=== PATIENT | female | born 1930 | race Caucasian/White ===

== ENCOUNTER 2018-11-20 16:31 | Emergency (ER) | payer MEDICARE, BC ==
[~2018-11-20] VITALS: Ht 152.4 cm; Wt 55.3 kg
[~2018-11-20 16:31] MED LIST: ALPRAZOLAM 0.5 MG; AMLO10TA4 PO; ASPI81TA31 PO; ATOR10TA PO; ESCI5TAB PO; LEVO25TA2 PO
[2018-11-20] MEDS ORDERED: IPRATROPIUM BROMIDE 0.5 MG/2.5 ML NEBU NEB ONE (17:15)
[2018-11-20] MEDS ORDERED: ALBUTEROL SULFATE 2.5 MG/3 ML NEBU NEB ONE (17:15)
[2018-11-20] MEDS ORDERED: ALBUTEROL SULFATE 2.5 MG/ 0.5 ML NEBU ONE (17:22)
[2018-11-20] MEDS ORDERED: IPRATROPIUM BROMIDE 0.5 MG/2.5 ML NEBU ONE (17:22)
--- NOTE | 2018-11-20 17:53 | NUR ---
Patient discharged to home in stable conditon. Written and verbal after care instructions given. Patient verbalizes understanding of instructions.pt says feels better, breathingnormally. pt accompanied by daughter
[2018-11-20 17:57] VITALS: BP 119/77
== END 2018-11-20 18:00 | disposition home or self-care (01) ==
LOC: ER 16:31
DX: J44.1 Chronic obstructive pulmonary disease with (acute) exacerbation (principal); I10 Essential (primary) hypertension; Z88.5 Allergy status to narcotic agent; Z79.82 Long term (current) use of aspirin; Z79.899 Other long term (current) drug therapy
CPT/HCPCS: 71045; A4663; J3590

== ENCOUNTER 2018-11-23 12:34 | Inpatient (IN) | payer MEDICARE, BC ==
[~2018-11-23] VITALS: Ht 152.4 cm; Wt 59.4 kg
--- NOTE | 2018-11-23 12:56 | NUR ---
PATIENT HERE WITH DAUGHTER FOR COUGHING..
[2018-11-23] MEDS ORDERED: IPRATROPIUM BROMIDE 0.5 MG/2.5 ML NEBU NEB ONE (13:00)
[2018-11-23] MEDS ORDERED: methylPREDNISolone SOD SUCC 125 MG/2 ML VIAL IV ONE (13:00)
[2018-11-23] MEDS ORDERED: ALBUTEROL SULFATE 2.5 MG/3 ML NEBU NEB ONE (13:00)
[2018-11-23] MEDS ORDERED: ALBUTEROL SULFATE 2.5 MG/3 ML NEBU ONE (13:02)
[2018-11-23] MEDS ORDERED: IPRATROPIUM BROMIDE 0.5 MG/2.5 ML NEBU ONE (13:03)
[2018-11-23] MEDS ORDERED: methylPREDNISolone SOD SUCC 125 MG/2 ML VIAL ONE (13:06)
[2018-11-23 13:13] LABS: BASOPHILS % (AUTO) 0.8 % (0.0-2.0); EOSINOPHILS # (AUTO) 0.2 K/uL (0.0-0.7); EOSINOPHILS % (AUTO) 2.9 % (0.0-7.0); HEMATOCRIT 34.9 % (31.2-41.9); LYMPHOCYTES # (AUTO) 1.3 K/uL (20.0-40.0); LYMPHOCYTES % (AUTO) 22.6 % (20.5-51.5); MEAN CORPUSCULAR HEMOGLOBIN 25.3 uug (24.7-32.8); MEAN CORPUSCULAR HGB CONC 32 g/dL (32.3-35.6); MEAN CORPUSCULAR VOLUME 80.3 fL (75.5-95.3); MONOCYTES # (AUTO) 0.7 K/uL (2.0-10.0); MONOCYTES % (AUTO) 11.4 % (0.0-11.0); NEUTROPHILS # (AUTO) 3.6 K/uL (1.8-8.9); NEUTROPHILS % (AUTO) 62.3 % (38.5-71.5); PLATELET COUNT (AUTO) 233 K/uL (179-408); RED BLOOD CELL COUNT(AUTO) 4.34 MIL/uL (3.63-4.92); WHITE BLOOD COUNT (AUTO) 5.8 K/uL (3.8-11.8)
[2018-11-23 13:19] LABS: CARBON DIOXIDE 29 mmol/L (21-32); CHLORIDE 102 mmol/L (98-107); CREATININE 0.9 mg/dL (0.6-1.3); GLUCOSE 90 mg/dL (74-106); POTASSIUM 4.6 mmol/L (3.5-5.1); UREA NITROGEN, BLOOD 11 mg/dL (7-18)
[2018-11-23 13:25] LABS: ALANINE AMINOTRANSFERASE 19 U/L (14-59); ALKALINE PHOSPHATASE 81 U/L (50-136); ASPARTATE AMINOTRANSFERASE 17 U/L (15-37); BILIRUBIN,DIRECT 0.1 mg/dL (0.0-0.2); BILIRUBIN,TOTAL 0.3 mg/dL (0.2-1.0); TOTAL PROTEIN, SERUM 7.4 g/dL (6.4-8.2)
[2018-11-23] MEDS ORDERED: DICY10CA13 PO (13:47)
[2018-11-23] MEDS ORDERED: MIRT15TA PO (13:47)
[2018-11-23] MEDS ORDERED: BUPR-96 PO (13:47)
[2018-11-23] MEDS ORDERED: DONE10TA11 PO (13:47)
--- NOTE | 2018-11-23 14:09 | NUR ---
PATIENT AND DAUGHTER AWARE OF PENDING ADMISSION TO HOSPITAL. PATIENT IS AWAKE AND ALERT WITH NO NEW COMPLAINTS.
--- NOTE | 2018-11-23 15:15 | NUR ---
Received this admission from ER per robert, 88 yo female, with the chief complaint of cough, diagnosis of COPD. Transferred to bed comfortably. Routine admission care rendered. Awake, alert, oriented x 4, able to move all extremities on purpose. O2 at 2L/NC. Dr. Barrett informed of admission.
[2018-11-23 15:32] VITALS: BP 113/56
[2018-11-23] MEDS ORDERED: ACETAMINOPHEN 325 MG TABLET PO PRN (16:45)
[2018-11-23] MEDS ORDERED: LEVOFLOXACIN 500 MG/D5W 500 MG in PREMIXED 1 EACH IV SCH (16:45)
[2018-11-23] MEDS ORDERED: IPRATROPIUM BROMIDE 0.5 MG/2.5 ML NEBU NEB PRN (16:45)
[2018-11-23] MEDS ORDERED: ONDANSETRON 4 MG/2 ML VIAL IV PRN (16:45)
[2018-11-23] MEDS ORDERED: MAGNESIUM HYDROXIDE 30 ML LIQUID UDC PO PRN (16:45)
[2018-11-23] MEDS: FLUTICASONE/VILANTEROL 1 EACH BLST.W.DEV INH SCH (18:31)
[2018-11-23 19:00] VITALS: BP 114/53
[2018-11-23] MEDS: ALBUTEROL SULFATE 2.5 MG/3 ML NEBU NEB PRN (19:20)
[2018-11-23] MEDS: IPRATROPIUM BROMIDE 0.5 MG/2.5 ML NEBU NEB PRN (19:20)
[2018-11-23] MEDS ORDERED: LEVOFLOXACIN 750MG/D5W 750 MG in PREMIXED 1 EACH IV SCH (19:30)
[2018-11-23] MEDS: DICYCLOMINE HCL 10 MG CAPSULE PO SCH (21:08)
[2018-11-23] MEDS: DOCUSATE SODIUM 100 MG CAPSULE PO SCH (21:08)
[2018-11-23] MEDS: ATORVASTATIN 10 MG TABLET PO SCH (21:08)
[2018-11-23] MEDS: MIRTAZAPINE 15 MG TABLET PO SCH (21:09)
[2018-11-23] MEDS: methylPREDNISolone SOD SUCC 40 MG/ML VIAL IV SCH (21:11)
[2018-11-23] MEDS: BENZOCAINE/MENTH/CETYLPYRD LOZENGE MM PRN (21:11)
[2018-11-23] MEDS ORDERED: GUAIFENESIN/DEXTROMETHORPHAN 5 ML UDC PO PRN (21:45)
[2018-11-24] VITALS: BP 125/57
[2018-11-24 05:00] VITALS: BP 105/50
[2018-11-24] MEDS: methylPREDNISolone SOD SUCC 40 MG/ML VIAL IV SCH ×3 (05:48→21:13)
[2018-11-24] MEDS: BENZOCAINE/MENTH/CETYLPYRD LOZENGE MM PRN (05:53)
[2018-11-24] MEDS: PANTOPRAZOLE SODIUM 40 MG TABLET.DR PO SCH (06:07)
[2018-11-24] MEDS: LEVOTHYROXINE SODIUM 75 MCG TABLET PO SCH (06:07)
[2018-11-24 06:11] LABS: BASOPHILS % (AUTO) 0.1 % (0.0-2.0); HEMATOCRIT 35.1 % (31.2-41.9); HEMOGLOBIN 11.3 g/dL (10.9-14.3); LYMPHOCYTES % (AUTO) 17.9 % (20.5-51.5); MEAN CORPUSCULAR HEMOGLOBIN 25.8 uug (24.7-32.8); MEAN CORPUSCULAR HGB CONC 32 g/dL (32.3-35.6); MEAN CORPUSCULAR VOLUME 79.9 fL (75.5-95.3); MONOCYTES # (AUTO) 0.2 K/uL (2.0-10.0); MONOCYTES % (AUTO) 2.9 % (0.0-11.0); NEUTROPHILS # (AUTO) 4.5 K/uL (1.8-8.9); NEUTROPHILS % (AUTO) 79.1 % (38.5-71.5); PLATELET COUNT (AUTO) 250 K/uL (179-408); RED BLOOD CELL COUNT(AUTO) 4.39 MIL/uL (3.63-4.92); WHITE BLOOD COUNT (AUTO) 5.7 K/uL (3.8-11.8)
[2018-11-24 06:20] LABS: CARBON DIOXIDE 28 mmol/L (21-32); CHLORIDE 104 mmol/L (98-107); CHOLESTEROL 117 mg/dL (<200); GLUCOSE 203 mg/dL (74-106); HDL CHOLESTEROL 64 mg/dL (40-60); MAGNESIUM 2.3 mg/dL (1.8-2.4); PHOSPHOROUS 3.2 mg/dL (2.5-4.9); POTASSIUM 4.3 mmol/L (3.5-5.1); TRIGLYCERIDES 24 MG/DL (30-150); UREA NITROGEN, BLOOD 18 mg/dL (7-18)
[2018-11-24 06:25] LABS: IRON, SERUM 48 ug/dL (50-175)
[2018-11-24 06:27] LABS: THYROID STIMULATING HORMONE 1.044 mIU/mL (0.358-3.740)
[2018-11-24 07:37] LABS: LYMPHOCYTES % (MANUAL) 16 % (20-40); MONOCYTES % (MANUAL) 4 % (2-10); NEUTROPHILS % (MANUAL) 80 % (42-75)
--- NOTE | 2018-11-24 07:50 | NUR ---
received a 88 y/o female patient as a case of COPD, alert OX3, breathing via NC 2lpm. pt has a LT F.ARM IV HEP-LOCKED,G20.Shes ambulatory, and has bathroom privileges.
[2018-11-24] MEDS ORDERED: LEVOTHYROXINE SODIUM 25 MCG TABLET PO SCH (09:00)
[2018-11-24] MEDS ORDERED: AMLODIPINE 10 MG TABLET PO SCH (09:00)
[2018-11-24] MEDS: BACITRACIN/POLYMYXIN B OINT 15 GM TUBE TOP SCH (09:00)
--- NOTE | 2018-11-24 09:00 | NUR ---
Report received from MERT Moore.Pt remains awake,alert,forgetful.Denies pain,discomfort.Spoke with pt daughter,updated on pt condition.
[2018-11-24] MEDS: FLUTICASONE/VILANTEROL 1 EACH BLST.W.DEV INH SCH (09:31)
[2018-11-24] MEDS: AMLODIPINE 5 MG TABLET PO SCH (09:32)
[2018-11-24] MEDS: buPROPion XL 150 MG TAB.SR.24H PO SCH (09:32)
[2018-11-24] MEDS: DONEPEZIL 10 MG TABLET PO SCH (09:33)
[2018-11-24 11:34] VITALS: BP 114/51
--- NOTE | 2018-11-24 13:30 | NUR ---
Report given to MERT Broussard.Pt remains awake,alert.Call light within reach.
[2018-11-24 16:04] VITALS: BP 104/54
[2018-11-24] MEDS: IPRATROPIUM BROMIDE 0.5 MG/2.5 ML NEBU NEB PRN (19:37)
[2018-11-24] MEDS: ALBUTEROL SULFATE 2.5 MG/3 ML NEBU NEB PRN (19:37)
[2018-11-24] MEDS: MIRTAZAPINE 15 MG TABLET PO SCH (20:03)
[2018-11-24] MEDS: DOCUSATE SODIUM 100 MG CAPSULE PO SCH (20:04)
[2018-11-24] MEDS: DICYCLOMINE HCL 10 MG CAPSULE PO SCH (20:04)
[2018-11-24] MEDS: ATORVASTATIN 10 MG TABLET PO SCH (20:04)
[2018-11-24 20:38] VITALS: BP 106/50
[2018-11-25 00:22] VITALS: BP 106/47
[2018-11-25] MEDS: BENZOCAINE/MENTH/CETYLPYRD LOZENGE MM PRN (01:55)
[2018-11-25 04:58] VITALS: BP 101/53
--- NOTE | 2018-11-25 05:09 | NUR ---
PT SLEPT WELL THROUGH THE NIGHT AND WAS EASILY AWOKEN, PT DENIED HAVING ANY PAIN, PT HAD ONE EPISODE OF SOB AT START OF SHIFT, BREATHING TREATMENT WAS GIVEN AND WAS EFFECTIVE. PT IN THE MIDDLE OF THE NIGHT WOKE UP WITH A VERY BAD COUGH, COUGH MEDICATION WAS GIVEN WITH COUGH LOZENGE AND WAS EFFECTIVE. PT WAS ABLE TO SLEEP FOR THE REST OF THE NIGHT. ALL NEEDS MET, SAFETY MEASURES ARE IN PLACE, CALL LIGHT WITHIN REACH, BED ALARM IS ON.
[2018-11-25] MEDS: PANTOPRAZOLE SODIUM 40 MG TABLET.DR PO SCH (06:22)
[2018-11-25] MEDS: LEVOTHYROXINE SODIUM 75 MCG TABLET PO SCH (06:22)
[2018-11-25] MEDS: methylPREDNISolone SOD SUCC 40 MG/ML VIAL IV SCH ×3 (06:22→21:35)
--- NOTE | 2018-11-25 07:20 | NUR ---
RECEIVED PATIENT IN THE BATHROOM AT THIS TIME STATED VOIDING ENCOURAGED HER TO LET THE NURSE KNOW WHEN SHE NEEDS HELP AND SHE EXPRESSED UNDERSTANDING ON ROOM AIR WITH NO SHORTNESS OF BREATH CALL LIGHTS AND PERSONAL BELONGINGS ARE PLACED WITHIN EASY REACH AND WILL CONTINUE TO OBSERVE.
[2018-11-25] MEDS: DONEPEZIL 10 MG TABLET PO SCH (08:27)
[2018-11-25] MEDS: buPROPion XL 150 MG TAB.SR.24H PO SCH (08:27)
[2018-11-25] MEDS: FLUTICASONE/VILANTEROL 1 EACH BLST.W.DEV INH SCH (08:28)
[2018-11-25] MEDS: AMLODIPINE 5 MG TABLET PO SCH (08:28)
[2018-11-25] MEDS: BACITRACIN/POLYMYXIN B OINT 15 GM TUBE TOP SCH (08:30)
--- NOTE | 2018-11-25 11:15 | NUR ---
NEW ORDER TO DISCONTINUE TELEMETRY BY DR BARNES RECEIVED AND NOTED
[2018-11-25 11:37] VITALS: BP 111/67
--- NOTE | 2018-11-25 13:29 | NUR ---
DR BARNES HERE TO SEE PATIENT AND STATED THAT IT WAS OKAY FOR PATIENT TO GET HER PNEUMONIA VACCINES TODAY AND THAT SHE SHOULD GET THE FLU VACCINES LATER FROM HER PRIMARY DOCTOR OR [facility] SHE IS FEELING BETTER PATIENT AWARE.
[2018-11-25] MEDS ORDERED: PNEUMOCOCCAL 23-VAL P-SAC VAC 0.5 ML VIAL IM ONE (13:30)
[2018-11-25 15:49] VITALS: BP 134/60
--- NOTE | 2018-11-25 15:50 | NUR ---
PNEUMONIA VACCINE GIVEN TO THE PATIENT ORDERED ON HER LEFT DELTOID NO BLEEDING MADE COMFORTABLE WILL CONTINUE TO OBSERVE.
[2018-11-25] MEDS ORDERED: LEVOFLOXACIN 750 MG TABLET PO SCH (16:00)
--- NOTE | 2018-11-25 18:22 | NUR ---
RESTING DAUGHTER AT THE BEDSIDE VISITING AT THIS TIME NO DISTRESS NOTED.
--- NOTE | 2018-11-25 19:46 | NUR ---
Received patient awake sitting up in bed not in any form of distress. Patient on room air, tolerated. With IV access at left forearm to saline lock, intact. No complaints at the moment. Will monitor for any recurrence of shortness of breath. Bed in low position, side rails up x 2, call light within reach.
[2018-11-25 20:14] VITALS: BP 128/56
[2018-11-25] MEDS: MIRTAZAPINE 15 MG TABLET PO SCH (20:55)
[2018-11-25] MEDS: DICYCLOMINE HCL 10 MG CAPSULE PO SCH (20:55)
[2018-11-25] MEDS: ATORVASTATIN 10 MG TABLET PO SCH (20:55)
[2018-11-25] MEDS: DOCUSATE SODIUM 100 MG CAPSULE PO SCH (20:55)
--- NOTE | 2018-11-25 22:00 | NUR ---
Patient irritable and requesting for sleeping medication, contacted Dr. De La Garza if any medication can be ordered regarding patient's request. Per Dr. De La Garza patient can have Xanax 1mg QHS PRN - noted.
[2018-11-25] MEDS ORDERED: ALPRAZOLAM 0.5 MG TABLET PO PRN (22:15)
[2018-11-25] MEDS: ALBUTEROL SULFATE 2.5 MG/3 ML NEBU NEB PRN (23:01)
[2018-11-25] MEDS: IPRATROPIUM BROMIDE 0.5 MG/2.5 ML NEBU NEB PRN (23:01)
[2018-11-26 05:23] VITALS: BP 137/72
[2018-11-26] MEDS: methylPREDNISolone SOD SUCC 40 MG/ML VIAL IV SCH (05:58)
[2018-11-26] MEDS: PANTOPRAZOLE SODIUM 40 MG TABLET.DR PO SCH (06:04)
[2018-11-26] MEDS: LEVOTHYROXINE SODIUM 75 MCG TABLET PO SCH (06:04)
--- NOTE | 2018-11-26 06:15 | NUR ---
Patient slept well, no respiratory distress noted. Patient is awake and alert x 3 but a little bit forgetful. Still with IV access on the left forearm, patent and intact. Noted for discharge planning this morning.
[2018-11-26] MEDS: buPROPion XL 150 MG TAB.SR.24H PO SCH (08:23)
[2018-11-26] MEDS: DONEPEZIL 10 MG TABLET PO SCH (08:23)
[2018-11-26] MEDS: FLUTICASONE/VILANTEROL 1 EACH BLST.W.DEV INH SCH (08:24)
[2018-11-26] MEDS: BACITRACIN/POLYMYXIN B OINT 15 GM TUBE TOP SCH (08:24)
[2018-11-26] MEDS: AMLODIPINE 5 MG TABLET PO SCH (08:25)
--- NOTE | 2018-11-26 09:00 | NUR ---
AWAKE ALERT FORGETFUL DENIES PAIN OR DISCOMFORTS AT THIS TIME ABLE TO AMBULATE BUT WEAK NEEDED SOME ASSIST CALL LIGHTS AND PERSONAL BELONGINGS ARE WITHIN EASY REACH AT THIS TIME WILL CONTINUE TO OBSERVE.
[2018-11-26 12:00] VITALS: BP 140/59
[2018-11-26] MEDS ORDERED: GUAIFENESIN LA 600 MG TABLET.SA PO SCH (12:15)
--- NOTE | 2018-11-26 14:00 | NUR ---
PATIENT HAS A DISCHARGE ORDER AND HAS BEEN APPROAVED BY JOSE G GOLDBERG CALLED THE AMBULANCE AND WILL BE PICKED UP AT [phone]
[2018-11-26] MEDS ORDERED: IPRA0.2S6 NEB (14:26)
[2018-11-26] MEDS ORDERED: FLUT1BLS INH (14:26)
[2018-11-26] MEDS ORDERED: MAGN400O6 PO (14:26)
[2018-11-26] MEDS ORDERED: ACET325T53 PO (14:26)
[2018-11-26] MEDS ORDERED: GUAI5SYR PO (14:26)
[2018-11-26] MEDS ORDERED: DOCU100C36 PO (14:26)
[2018-11-26] MEDS ORDERED: GUAI600T53 PO (14:26)
[2018-11-26] MEDS ORDERED: BACI15OI3 TOP (14:26)
[2018-11-26] MEDS ORDERED: MULT1TAB73 PO (14:26)
[2018-11-26] MEDS ORDERED: Benzocaine/Menth/Cetylpyrd Cl MM (14:26)
[2018-11-26] MEDS ORDERED: METH4TAB3 PO (14:26)
[2018-11-26] MEDS ORDERED: ALPR0.5T PO (14:26)
[2018-11-26] MEDS ORDERED: LEVO750T21 PO (14:26)
[2018-11-26] MEDS ORDERED: ALBU2.5V7 NEB (14:26)
[2018-11-26] MEDS ORDERED: PANT40TA2 PO (14:26)
[2018-11-26 15:35] VITALS: BP 103/65
--- NOTE | 2018-11-26 17:22 | NUR ---
CALLED JOSE G GOLDBERG AND REPORT GIVEN TO ANGUS PAINTING FOR CONTINUING CARE ALSO REPORT GIVEN TO THE AMBULANCE TECH HERE NOW D/C INSTRUCTIONS GIVEN TO PATIENT AND SHE EXPRESSED UNDERSTANDING.DISCHARGED IN SATISFACTORY CONDITION WITH ALL OF HIS PERSONAL BELONGINGS.
--- NOTE | 2018-11-26 17:45 | NUR ---
PATIENT DISCHARGED FROM THE HOSPITAL BY RICARDO WITH ALL HER PERSONAL BELONGINGS IN SATISFACTORY CONDITION.
[2018-11-26] MEDS ORDERED: methylPREDNISolone SOD SUCC 40 MG/ML VIAL IV SCH (21:00)
== END 2018-11-26 17:45 | DRG 190 ==
LOC: ER 12:34 → TELE 14:48 → MED 11-25 11:15
PROVIDERS: ADMIT Internal Medicine; ATTEND Internal Medicine
DX: J44.0 Chronic obstructive pulmonary disease with (acute) lower respiratory infection (principal); I50.33 Acute on chronic diastolic (congestive) heart failure; J96.01 Acute respiratory failure with hypoxia; J84.9 Interstitial pulmonary disease, unspecified; D68.59 Other primary thrombophilia; J20.9 Acute bronchitis, unspecified; J44.1 Chronic obstructive pulmonary disease with (acute) exacerbation; Z79.899 Other long term (current) drug therapy; Z79.82 Long term (current) use of aspirin; Z87.891 Personal history of nicotine dependence; A49.9 Bacterial infection, unspecified; I11.0 Hypertensive heart disease with heart failure; Z98.42 Cataract extraction status, left eye; Z98.41 Cataract extraction status, right eye; M19.90 Unspecified osteoarthritis, unspecified site; E78.5 Hyperlipidemia, unspecified; Z87.19 Personal history of other diseases of the digestive system; Z79.890 Hormone replacement therapy; I35.1 Nonrheumatic aortic (valve) insufficiency; F32.9 Major depressive disorder, single episode, unspecified; G47.00 Insomnia, unspecified
CPT/HCPCS: 36415; 70030-TC; 71045; 83550; 83605; 83735; 84100; 84443; 85025; 87040; 90732; 93005; 93307; 94640; 94664; 97116; 97530; A4663; G0378; J1956; J2920; J2930; J3590

== ENCOUNTER 2020-04-18 11:59 | Inpatient (IN) | payer MEDICARE, BC ==
[~2020-04-18] VITALS: Ht 160 cm; Wt 58.1 kg
[~2020-04-18 11:59] MED LIST changes: +ACET325T53 PO; +ALBU2.5V7 NEB; +ALPR0.5T PO; -ALPRAZOLAM 0.5 MG; -ASPI81TA31 PO; +BUPR-96 PO; +Benzocaine/Menth/Cetylpyrd Cl MM; +DICY10CA13 PO; +DOCU100C36 PO; +DONE10TA11 PO; -ESCI5TAB PO; +FLUT1BLS INH; +GUAI5SYR PO; +GUAI600T53 PO; +IPRA0.2S6 NEB; +LEVO750T21 PO; +MAGN400O6 PO; +METH4TAB3 PO; +MIRT15TA PO; +MULT-594 PO; +PANT40TA2 PO; +[UNRECOGNIZED DRUG - CODE] TOP
--- NOTE | 2020-04-18 12:10 | NUR ---
Pt is unable to recall her home medications. Pt states her daughter will come in later with the information.
--- NOTE | 2020-04-18 13:06 | NUR ---
Patient is resting comfortably on gurney with eyes closed, NAD, for results and disposition
[2020-04-18] MEDS ORDERED: ONDANSETRON 4 MG/2 ML VIAL ONE (13:29)
[2020-04-18] MEDS ORDERED: HYDROMORPHONE 1 MG/1 ML DISP.SYRIN ONE (13:29)
[2020-04-18] MEDS ORDERED: ONDANSETRON 4 MG/2 ML VIAL IV ONE (13:30)
[2020-04-18] MEDS ORDERED: HYDROMORPHONE 1 MG/1 ML DISP.SYRIN IV ONE (13:30)
[2020-04-18] MEDS ORDERED: IV NORMAL SALINE 1000 ML BAG IV ONE (13:30)
[2020-04-18 13:43] LABS: BASOPHILS # (AUTO) 0.1 K/uL (0.0-8.0); EOSINOPHILS # (AUTO) 0.1 K/uL (0.0-0.7); EOSINOPHILS % (AUTO) 1.7 % (0.0-7.0); HEMATOCRIT 37.8 % (31.2-41.9); HEMOGLOBIN 12.1 g/dL (10.9-14.3); LYMPHOCYTES # (AUTO) 1.6 K/uL (20.0-40.0); LYMPHOCYTES % (AUTO) 22.5 % (20.5-51.5); MEAN CORPUSCULAR HEMOGLOBIN 26.5 uug (24.7-32.8); MEAN CORPUSCULAR HGB CONC 32 g/dL (32.3-35.6); MEAN CORPUSCULAR VOLUME 82.9 fL (75.5-95.3); MONOCYTES # (AUTO) 0.5 K/uL (2.0-10.0); MONOCYTES % (AUTO) 7.7 % (0.0-11.0); NEUTROPHILS # (AUTO) 4.7 K/uL (1.8-8.9); NEUTROPHILS % (AUTO) 67.1 % (38.5-71.5); PLATELET COUNT (AUTO) 276 K/uL (179-408); RED BLOOD CELL COUNT(AUTO) 4.56 MIL/uL (3.63-4.92); WHITE BLOOD COUNT (AUTO) 7.1 K/uL (3.8-11.8)
[2020-04-18 13:50] LABS: CREATININE 0.8 mg/dL (0.6-1.3); POTASSIUM 4.2 mmol/L (3.5-5.1)
[2020-04-18 13:56] LABS: BILIRUBIN,DIRECT 0.1 mg/dL (0.0-0.2); BILIRUBIN,TOTAL 0.5 mg/dL (0.2-1.0); TOTAL PROTEIN, SERUM 7.7 g/dL (6.4-8.2)
--- NOTE | 2020-04-18 14:04 | NUR ---
MERCEDEZ [email or web address]
--- NOTE | 2020-04-18 14:10 | NUR ---
Patient is waiting for admission, pending admitting papers from ER registration staff Colby@this time, patient is calm, comfortable@this moment
[2020-04-18] MEDS ORDERED: ALBUTEROL SULFATE 2.5 MG/3 ML NEBU NEB PRN (14:45)
[2020-04-18] MEDS ORDERED: ACETAMINOPHEN 325 MG TABLET PO PRN (14:45)
[2020-04-18] MEDS ORDERED: MAGNESIUM HYDROXIDE 30 ML LIQUID UDC PO PRN (14:45)
[2020-04-18] MEDS ORDERED: ALPRAZOLAM 0.5 MG TABLET PO PRN (14:45)
[2020-04-18] MEDS ORDERED: IPRATROPIUM BROMIDE 0.5 MG/2.5 ML NEBU NEB PRN (14:45)
[2020-04-18] MEDS ORDERED: Z GUARD REMEDY PASTE 57 GM TUBE TOP PRN (14:45)
[2020-04-18] MEDS ORDERED: ZOLPIDEM 5 MG TABLET PO PRN (14:45)
--- NOTE | 2020-04-18 14:45 | NUR ---
Pt brought up to room via stretcher. AOx4 and complaining of 10/10 lower back and hip pain. On RA with no SOB or distress noted at this time. IV on left AC 22g flushed and intact. Can't turn patient for assessment as much due to severe pain. Will give medication and assess again at another time. Bed locked in lowest position with siderails 2x up. Call light within reach.
[2020-04-18 15:00] VITALS: BP 180/66
[2020-04-18] MEDS: IV 1/2NS 1000 ML 1,000 ML IV PRN (15:38)
[2020-04-18] MEDS: HYDROMORPHONE 1 MG/1 ML DISP.SYRIN IV PRN (15:54)
[2020-04-18 16:00] VITALS: BP 158/65
[2020-04-18] MEDS: ONDANSETRON 4 MG/2 ML VIAL IV PRN (18:42)
--- NOTE | 2020-04-18 18:47 | NUR ---
Pt had 2 episodes of emesis, one post dinner and stated she feel nauseated. Zofran PRN given as ordered
--- NOTE | 2020-04-18 19:58 | NUR ---
Patient received into care, sitting up in bed, watching television. Patient was noted to be vomiting into Styrofoam cup with emesis bag nearby. This nurse provided patient with emesis bag and threw away cup filled with vomitus. Patient has left AC IV cath running 1/2 NS at 50. Patient is alert/oriented x3 and has no complaints of pain at this time. All safety, fall, and allergy precautions are in place. Call light and personal items are within reach at all times. Will continue to monitor and assess.
[2020-04-18] MEDS: ENOXAPARIN SODIUM 40 MG/0.4 ML DISP.SYRIN SQ SCH (20:27)
[2020-04-18 20:30] VITALS: BP 134/57
[2020-04-18] MEDS: DICYCLOMINE HCL 10 MG CAPSULE PO SCH (20:36)
[2020-04-18] MEDS: ATORVASTATIN 10 MG TABLET PO SCH (20:36)
[2020-04-18] MEDS: DOCUSATE SODIUM 100 MG CAPSULE PO SCH (20:36)
[2020-04-18 21:31] LABS: *BILIRUBIN,URIN NEGATIVE (NEGATIVE); *CLARITY,URINE CLEAR (CLEAR); *COLOR,URINE YELLOW (YELLOW); *KETONES,URINE NEGATIVE (NEGATIVE); LEUKOCYTE ESTERASE ,URINE TRACE (NEGATIVE); NITRITE, URINE NEGATIVE (NEGATIVE); UGLUCOSE NEGATIVE (NEGATIVE)
[2020-04-18 21:34] LABS: *BLOOD, URINE TRACE (NEGATIVE)
[2020-04-18 21:43] LABS: BACTERIA,URINE FEW /HPF (NONE SEEN); RBC,URINE 0-3 /HPF (0-3); SQUAMOUS EPITHELIAL CELL,UR FEW /HPF (NONE SEEN); WBC,URINE 0-3 /HPF (0-3)
[2020-04-19 05:20] VITALS: BP 128/66
--- NOTE | 2020-04-19 06:00 | NUR ---
Patient slept throughout night after receiving prescribed Ambien with no complaints of pain or discomfort this shift. As ordered, urine was collected for UA/culture/sensitivity and delivered to lab. All prescribed medications provided as ordered and tolerated well, with no adverse side effects verbalized by patient or noted/observed by this nurse. IV cath in left AC is patent and intact running 1/2 NS at 50mL/hr. All fall, allergy, and safety precautions remain in place. Call light and personal items remain within reach.
[2020-04-19 06:37] LABS: BASOPHILS # (AUTO) 0.1 K/uL (0.0-8.0); BASOPHILS % (AUTO) 1.4 % (0.0-2.0); EOSINOPHILS # (AUTO) 0.2 K/uL (0.0-0.7); EOSINOPHILS % (AUTO) 3.3 % (0.0-7.0); HEMATOCRIT 35.7 % (31.2-41.9); HEMOGLOBIN 11.5 g/dL (10.9-14.3); LYMPHOCYTES # (AUTO) 1.5 K/uL (20.0-40.0); LYMPHOCYTES % (AUTO) 26.9 % (20.5-51.5); MEAN CORPUSCULAR HEMOGLOBIN 26.7 uug (24.7-32.8); MEAN CORPUSCULAR HGB CONC 32 g/dL (32.3-35.6); MEAN CORPUSCULAR VOLUME 82.9 fL (75.5-95.3); MONOCYTES # (AUTO) 0.4 K/uL (2.0-10.0); MONOCYTES % (AUTO) 7.6 % (0.0-11.0); NEUTROPHILS # (AUTO) 3.4 K/uL (1.8-8.9); NEUTROPHILS % (AUTO) 60.8 % (38.5-71.5); PLATELET COUNT (AUTO) 260 K/uL (179-408); RED BLOOD CELL COUNT(AUTO) 4.31 MIL/uL (3.63-4.92); WHITE BLOOD COUNT (AUTO) 5.7 K/uL (3.8-11.8)
[2020-04-19 06:47] LABS: BILIRUBIN,TOTAL 0.7 mg/dL (0.2-1.0); CREATININE 0.9 mg/dL (0.6-1.3); MAGNESIUM 2.2 mg/dL (1.8-2.4); PHOSPHOROUS 3.2 mg/dL (2.5-4.9); POTASSIUM 3.8 mmol/L (3.5-5.1); TOTAL PROTEIN, SERUM 6.9 g/dL (6.4-8.2)
[2020-04-19 06:54] LABS: THYROID STIMULATING HORMONE 2.63 mIU/mL (0.358-3.740)
[2020-04-19] MEDS ORDERED: LEVOTHYROXINE SODIUM 25 MCG TABLET PO SCH (07:00)
[2020-04-19] MEDS ORDERED: BISACODYL 5 MG TABLET.DR PO PRN (07:30)
[2020-04-19] MEDS ORDERED: AMLODIPINE 10 MG TABLET PO SCH (09:00)
[2020-04-19] MEDS ORDERED: Medication Not On Formulary EA (Multivitamins (Multivitamin) 1 EACH) PO SCH (09:00)
[2020-04-19] MEDS: DONEPEZIL 10 MG TABLET PO SCH (09:04)
[2020-04-19] MEDS: buPROPion XL 150 MG TAB.SR.24H PO SCH (09:04)
[2020-04-19] MEDS: MULTIVITAMINS,THERAPEUTIC TABLET PO SCH (09:04)
[2020-04-19] MEDS: CEFTRIAXONE 1 G in IV DEXTROSE 5% 50 ML IV SCH (09:04)
--- NOTE | 2020-04-19 09:10 | NUR ---
patient noted resting in bed, call light in reach, no signs of distress, Dilaudid given for back pain, one episode of vomiting noted, call light in reach, bed locked and in lowest position, all needs met
[2020-04-19] MEDS: HYDROMORPHONE 1 MG/1 ML DISP.SYRIN IV PRN ×2 (09:27→16:46)
[2020-04-19] MEDS: FLUTICASONE/VILANTEROL 1 EACH BLST.W.DEV INH SCH (09:53)
[2020-04-19 12:00] VITALS: BP 115/47
[2020-04-19] MEDS: ONDANSETRON 4 MG/2 ML VIAL IV PRN (14:48)
[2020-04-19 16:36] VITALS: BP 142/59
[2020-04-19] MEDS: IV 1/2NS 1000 ML 1,000 ML IV PRN (19:48)
[2020-04-19 20:44] VITALS: BP 128/63
[2020-04-19] MEDS: DICYCLOMINE HCL 10 MG CAPSULE PO SCH (20:57)
[2020-04-19] MEDS: ATORVASTATIN 10 MG TABLET PO SCH (20:57)
[2020-04-19] MEDS: DOCUSATE SODIUM 100 MG CAPSULE PO SCH (20:57)
[2020-04-19] MEDS: ENOXAPARIN SODIUM 40 MG/0.4 ML DISP.SYRIN SQ SCH (21:04)
[2020-04-20 05:34] VITALS: BP 140/62
[2020-04-20] MEDS: LEVOTHYROXINE SODIUM 75 MCG TABLET PO SCH (06:13)
[2020-04-20 06:17] LABS: BASOPHILS # (AUTO) 0.1 K/uL (0.0-8.0); EOSINOPHILS # (AUTO) 0.1 K/uL (0.0-0.7); EOSINOPHILS % (AUTO) 2.5 % (0.0-7.0); HEMATOCRIT 37.4 % (31.2-41.9); HEMOGLOBIN 12.2 g/dL (10.9-14.3); LYMPHOCYTES # (AUTO) 1.6 K/uL (20.0-40.0); LYMPHOCYTES % (AUTO) 28.1 % (20.5-51.5); MEAN CORPUSCULAR HEMOGLOBIN 27.1 uug (24.7-32.8); MEAN CORPUSCULAR HGB CONC 33 g/dL (32.3-35.6); MEAN CORPUSCULAR VOLUME 82.8 fL (75.5-95.3); MONOCYTES # (AUTO) 0.4 K/uL (2.0-10.0); MONOCYTES % (AUTO) 7.5 % (0.0-11.0); NEUTROPHILS # (AUTO) 3.5 K/uL (1.8-8.9); NEUTROPHILS % (AUTO) 60.9 % (38.5-71.5); PLATELET COUNT (AUTO) 262 K/uL (179-408); RED BLOOD CELL COUNT(AUTO) 4.51 MIL/uL (3.63-4.92); WHITE BLOOD COUNT (AUTO) 5.7 K/uL (3.8-11.8)
[2020-04-20 06:35] LABS: BILIRUBIN,DIRECT 0.1 mg/dL (0.0-0.2); BILIRUBIN,TOTAL 0.7 mg/dL (0.2-1.0); CREATININE 0.9 mg/dL (0.6-1.3); POTASSIUM 3.5 mmol/L (3.5-5.1); TOTAL PROTEIN, SERUM 7.2 g/dL (6.4-8.2)
--- NOTE | 2020-04-20 07:05 | NUR ---
Patient slept well at night, no PRN meds were given. No nausea or vomiting reported. Compliant with med regimen, forgetful, [id number]. Used bed cunningham several times to urinate.
[2020-04-20 08:00] VITALS: BP 155/63
--- NOTE | 2020-04-20 08:00 | NUR ---
Received pt in bed asleep but arousable to name and touch, AOx4. On RA with no SOB or distress noted at this time. IV on left FA 20g flushed and patent. Complains of hip and back 6/10 pain when changing position. No other complaints at this time. Bed locked in lowest position with siderails 2x up. Call light within reach. Will continue to monitor
[2020-04-20] MEDS: CEFTRIAXONE 1 G in IV DEXTROSE 5% 50 ML IV SCH (08:19)
[2020-04-20] MEDS: buPROPion XL 150 MG TAB.SR.24H PO SCH (09:10)
[2020-04-20] MEDS: MULTIVITAMINS,THERAPEUTIC TABLET PO SCH (09:10)
[2020-04-20] MEDS: FLUTICASONE/VILANTEROL 1 EACH BLST.W.DEV INH SCH (09:10)
[2020-04-20] MEDS: DONEPEZIL 10 MG TABLET PO SCH (09:11)
[2020-04-20] MEDS: AMLODIPINE 5 MG TABLET PO SCH (09:11)
[2020-04-20 11:31] LABS: ACETAMINOPHEN < 2.0 ug/mL (10-30)
[2020-04-20 11:47] VITALS: BP 123/58
[2020-04-20] MEDS: IV 1/2NS 1000 ML 1,000 ML IV PRN (15:57)
[2020-04-20 16:04] VITALS: BP 136/54
--- NOTE | 2020-04-20 16:14 | NUR ---
Temp 99.5, applied ice pack under armpits.
--- NOTE | 2020-04-20 19:30 | NUR ---
RECEIVED PT IN NO ACUTE DISTRESS. IV INTACT. PT CAN MAKE HER NEEDS KNOWN. SAFETY AND COMFORT PROVIDED.WILL CONTINUE TO MONITOR.
--- NOTE | 2020-04-20 19:45 | NUR ---
DAUGHTER OF THE PT CALLED. ASKED ABOUT UPDATE REGARDING HER MOTHER AND WANTS TO SPEAK TO THE DOCTOR. GAVE NUMBER OF [employer]. DAUGHTER SAID THAT HER MOM SAID SHE DIDN'T HAVE ANY BOWEL MOVEMENT AND FEEL CONSTIPATED. TOLD HER THAT [facility] NURSE INFORMED ME THAT PT HAD BOWEL MOVEMENT. DAUGHTER WANTS TO CHANGED THE PAIN MEDICATION TO MORPHINE WHICH IS EFFECTIVE FOR HER MOTHER. WILL CONTINUE TO MONITOR.
[2020-04-20] MEDS ORDERED: MORPHINE SULFATE 2 MG/1 ML DISP.SYRIN IV PRN (20:15)
[2020-04-20 20:30] VITALS: BP 149/61
[2020-04-20] MEDS: ATORVASTATIN 10 MG TABLET PO SCH (21:36)
[2020-04-20] MEDS: DICYCLOMINE HCL 10 MG CAPSULE PO SCH (21:36)
[2020-04-20] MEDS: DOCUSATE SODIUM 100 MG CAPSULE PO SCH (21:36)
[2020-04-20] MEDS: ENOXAPARIN SODIUM 40 MG/0.4 ML DISP.SYRIN SQ SCH (21:44)
--- NOTE | 2020-04-20 23:00 | NUR ---
XANAX GIVEN AT 2159H PER PT REQUEST. PT WANTS TO SLEEP AND HAS MILD ANXIETY. PT TOLERATED IT WELL. PT REFUSED TO TAKE MILK OF MAGNESIA SINCE SHE TOOK DULCOLAX. WILL CONTINUE TO MONITOR.
[2020-04-21 05:51] VITALS: BP 139/67
[2020-04-21] MEDS: LEVOTHYROXINE SODIUM 75 MCG TABLET PO SCH (06:26)
--- NOTE | 2020-04-21 06:33 | NUR ---
PT SLEPT COMFORTABLY. PT IN NO ACUTE DISTRESS. IV INTACT. SAFETY AND COMFORT PROVIDED. PRESCRIBED MEDICATION GIVEN AND PT TOLERATED IT WELL. ALL NEEDS ARE MET. WILL ENDORSE TO INCOMING NURSE FOR CONTINUITY OF CARE.
[2020-04-21] MEDS: MULTIVITAMINS,THERAPEUTIC TABLET PO SCH (08:57)
[2020-04-21] MEDS: DONEPEZIL 10 MG TABLET PO SCH (08:57)
[2020-04-21] MEDS: buPROPion XL 150 MG TAB.SR.24H PO SCH (08:57)
[2020-04-21] MEDS: CEFTRIAXONE 1 G in IV DEXTROSE 5% 50 ML IV SCH (08:57)
[2020-04-21] MEDS: AMLODIPINE 5 MG TABLET PO SCH (08:58)
[2020-04-21] MEDS: FLUTICASONE/VILANTEROL 1 EACH BLST.W.DEV INH SCH (09:03)
[2020-04-21 09:09] LABS: BASOPHILS % (AUTO) 0.8 % (0.0-2.0); EOSINOPHILS # (AUTO) 0.1 K/uL (0.0-0.7); EOSINOPHILS % (AUTO) 1.8 % (0.0-7.0); HEMATOCRIT 39.3 % (31.2-41.9); HEMOGLOBIN 12.7 g/dL (10.9-14.3); LYMPHOCYTES # (AUTO) 1.5 K/uL (20.0-40.0); LYMPHOCYTES % (AUTO) 23.1 % (20.5-51.5); MEAN CORPUSCULAR HEMOGLOBIN 26.7 uug (24.7-32.8); MEAN CORPUSCULAR HGB CONC 32 g/dL (32.3-35.6); MEAN CORPUSCULAR VOLUME 82.7 fL (75.5-95.3); MONOCYTES # (AUTO) 0.4 K/uL (2.0-10.0); MONOCYTES % (AUTO) 6.7 % (0.0-11.0); NEUTROPHILS # (AUTO) 4.2 K/uL (1.8-8.9); NEUTROPHILS % (AUTO) 67.6 % (38.5-71.5); PLATELET COUNT (AUTO) 258 K/uL (179-408); RED BLOOD CELL COUNT(AUTO) 4.75 MIL/uL (3.63-4.92); WHITE BLOOD COUNT (AUTO) 6.3 K/uL (3.8-11.8)
[2020-04-21 09:14] LABS: BILIRUBIN,DIRECT 0.2 mg/dL (0.0-0.2); BILIRUBIN,TOTAL 0.5 mg/dL (0.2-1.0); POTASSIUM 3.6 mmol/L (3.5-5.1); TOTAL PROTEIN, SERUM 7.3 g/dL (6.4-8.2)
[2020-04-21] MEDS ORDERED: CEPH-570 PO (09:23)
[2020-04-21 11:30] VITALS: BP 154/73
[2020-04-21 16:00] VITALS: BP 135/71
[2020-04-21] MEDS ORDERED: CEphaleXIN 500 MG CAPSULE PO SCH (22:00)
== END 2020-04-21 17:20 | DRG 551 ==
LOC: ER 12:01 → MEDSURG3 14:22
PROVIDERS: ADMIT Nurse Practitioner Acute Care; ATTEND Nurse Practitioner Acute Care
DX: M51.36 Other intervertebral disc degeneration, lumbar region (principal); K72.00 Acute and subacute hepatic failure without coma; N39.0 Urinary tract infection, site not specified; D68.69 Other thrombophilia; F32.9 Major depressive disorder, single episode, unspecified; G47.00 Insomnia, unspecified; J44.9 Chronic obstructive pulmonary disease, unspecified; K52.9 Noninfective gastroenteritis and colitis, unspecified; I10 Essential (primary) hypertension; R74.0 Nonspecific elevation of levels of transaminase and lactic acid dehydrogenase [LDH]; M41.86 Other forms of scoliosis, lumbar region; M48.061 Spinal stenosis, lumbar region without neurogenic claudication; Z91.81 History of falling
CPT/HCPCS: 36415; 70030-TC; 71045; 72131; 72192; 83690; 83735; 84100; 84443; 85025; 85730; 87086; 93005; A4663; G0378; G0480; G0480-TC; J0696; J1170; J1650; J2405; J3490; J7030; J7060

== ENCOUNTER 2020-04-21 15:57 | Inpatient (IN) | payer MEDICARE, BC ==
[~2020-04-21] VITALS: Ht 157.5 cm; Wt 57.6 kg
[~2020-04-21 15:57] MED LIST changes: +CEPH-570 PO
--- NOTE | 2020-04-21 17:57 | NUR ---
Received patient from [facility] via bed in stable condition. Alert and orientedx3. Patient DX: Intractable back pain/lumbar pain and UTI. Patient will start keflex PO for UTI for 5 days. Patient no complaint of pain/discomfort noted Patient left buttocks redness noted. no skin breakdown. Patient continent in bladder and bowel. Patient use bedpan. Patient bedbound. Patient turning position and off loading of heel. Patient for wound care consult for low beverly scale. On cardiac low fat diet. Patient with IV of site heplock G20 left forearm. intact and patent. will continue monitor for safety.
[2020-04-21] MEDS ORDERED: MAGNESIUM HYDROXIDE 30 ML LIQUID UDC PO PRN (19:00)
[2020-04-21] MEDS ORDERED: ALBUTEROL SULFATE 2.5 MG/3 ML NEBU NEB PRN (19:00)
[2020-04-21] MEDS ORDERED: IPRATROPIUM BROMIDE 0.5 MG/2.5 ML NEBU NEB PRN (19:00)
[2020-04-21 20:00] VITALS: BP 145/43
[2020-04-21] MEDS: DICYCLOMINE HCL 10 MG CAPSULE PO SCH (21:36)
[2020-04-21] MEDS: ATORVASTATIN 10 MG TABLET PO SCH (21:36)
[2020-04-21] MEDS: MIRTAZAPINE 15 MG TABLET PO SCH (21:36)
[2020-04-21] MEDS: GUAIFENESIN LA 600 MG TABLET.SA PO SCH (21:36)
[2020-04-21] MEDS: Z GUARD REMEDY PASTE 57 GM TUBE TOP SCH (21:36)
[2020-04-21] MEDS: DOCUSATE SODIUM 100 MG CAPSULE PO SCH (21:36)
[2020-04-21] MEDS: ACETAMINOPHEN 325 MG TABLET PO PRN (21:41)
[2020-04-22 04:00] VITALS: BP 109/61
--- NOTE | 2020-04-22 05:06 | NUR ---
Received patient lying in bed writing notes on her paper. Patient is axox 3, very forgetful needs reinforcement and reminder of what was said. Patient was anxious that she could not get a hold of her family, could not remember the correct phone number. Daughters contact in patients chart, given to patient, was able to get a hold of her daughter at night. Daughter stated that they have spoken to her during the day, but she forgot. Family is aware of patients status. No signs and symptoms of distress noted, no SOB, on RA O2 saturating 98%. Patient is continent, incontinent. PM care completed, patient kept clean dry and comfortable, linens changed. Skin intact warm and dry to touch. Noted little redness of left buttocks. Patient is bed bound, motivated patient to turn throughout the night. Applied ice pack on lower back for pain. Administered Tylenol and all due medication, tolerated well. Patient with IV of site heplock G20 left forearm, intact and patent. All needs attended to, kept comfortable. Safety measure in place, call light and all personal items within reach. will continue plan of care, endorse next shift accordingly.
[2020-04-22] MEDS: PANTOPRAZOLE SODIUM 40 MG TABLET.DR PO SCH (06:11)
[2020-04-22] MEDS: OXYCODONE/APAP 5-325 MG TABLET PO PRN ×2 (06:39→20:39)
--- NOTE | 2020-04-22 06:39 | NUR ---
Patient slept through the night, kept comfortable. Patient requested pain medication for her back pain 04/02. administered Oxycodone
[2020-04-22 07:30] VITALS: BP 128/42
[2020-04-22] MEDS: CEphaleXIN 500 MG CAPSULE PO SCH ×3 (08:56→17:30)
[2020-04-22] MEDS: MULTIVITAMINS,THERAPEUTIC TABLET PO SCH (08:56)
[2020-04-22] MEDS: ACETAMINOPHEN 325 MG TABLET PO PRN (08:56)
[2020-04-22] MEDS: FLUTICASONE/VILANTEROL 1 EACH BLST.W.DEV INH SCH (08:57)
[2020-04-22] MEDS: AMLODIPINE 5 MG TABLET PO SCH (08:57)
[2020-04-22] MEDS: buPROPion XL 150 MG TAB.SR.24H PO SCH (08:57)
[2020-04-22] MEDS: DONEPEZIL 10 MG TABLET PO SCH (08:57)
[2020-04-22] MEDS: GUAIFENESIN LA 600 MG TABLET.SA PO SCH ×2 (08:57→20:40)
[2020-04-22] MEDS: LIDOCAINE 5% PATCH TD SCH (08:58)
[2020-04-22] MEDS: Z GUARD REMEDY PASTE 57 GM TUBE TOP SCH ×2 (08:58→20:40)
[2020-04-22] MEDS ORDERED: POLYMYXIN B SULFATE TOP SCH (09:00)
[2020-04-22] MEDS ORDERED: Medication Not On Formulary EA (Multivitamins (Multivitamin) 1 EACH) PO SCH (09:00)
[2020-04-22] MEDS ORDERED: LEVOTHYROXINE SODIUM 25 MCG TABLET PO SCH (09:00)
[2020-04-22] MEDS ORDERED: BACITRACIN TOP SCH (09:00)
[2020-04-22] MEDS ORDERED: AMLODIPINE 10 MG TABLET PO SCH (09:00)
--- NOTE | 2020-04-22 12:09 | NUR ---
WOUND CARE CONSULT: PT PRESENTS WITH LEFT BUTTOCK HEALED AREA, PRESENT ON ADMISSION. RECOMMENDATIONS MADE FOR SKIN PROTECTION. DISCUSSED WITH NURSING STAFF. PT IS ABLE TO ASSIST WITH TURNING AND REPOSITIONING IN BED. PT IS CONTINENT. WILL SEE PRN. SCOTT IN AGREEMENT WITH PLAN OF CARE. Addendum: 04/22/20 at 1211 by CAROLE MAURER RN Amended: Links added.
--- NOTE | 2020-04-22 12:24 | NUR ---
Received patient awake in bed in stable condition. Patient seen and examined by wound care nurse mandy. no new order. Continue skin care to prevent skin breakdown. Patient continue off load heel. Turning positioning every 2 hours and if needed. Patient contnue pain management prior to therapy and routinely. tolerated well. will continue monitor
[2020-04-22 16:00] VITALS: BP 124/57
--- NOTE | 2020-04-22 16:55 | NUR ---
Patient forget fullness noted during conversation. Patient continue repeating ask words. no agitation and anxiety noted. will continue monitor
[2020-04-22 20:00] VITALS: BP 122/56
[2020-04-22] MEDS: DOCUSATE SODIUM 100 MG CAPSULE PO SCH (20:40)
[2020-04-22] MEDS: DICYCLOMINE HCL 10 MG CAPSULE PO SCH (20:40)
[2020-04-22] MEDS: ATORVASTATIN 10 MG TABLET PO SCH (20:40)
[2020-04-22] MEDS: MIRTAZAPINE 15 MG TABLET PO SCH (20:40)
--- NOTE | 2020-04-22 22:00 | NUR ---
Received patient lying in bed looking worried. Verbalized that nobody is coming to see her, nobody is helping her. Complaints of pain 7/10 wants pain medication. Patient is axox2-3, very forgetful needs reinforcement and reminder of what was said. Patient forgot that doctor Frederic visited her and verbalized concern that she has not see a doctor yet, confused and needs reorientation. Patient phoned her daughter and expressed her concerns who I then spoke with. I assured that the patient is being taken care of, taking all her medications and that she is forgetful. Daughter wanted to make sure that her mother is taking all her medications from home, especially her depression medications, daughter faxed her medications over for comparison. Daughter voiced concern for her mental health and would like an evaluation. Will follow up with the doctor in the morning.
[2020-04-23 04:00] VITALS: BP 128/53
--- NOTE | 2020-04-23 05:00 | NUR ---
Administered all due medication, and oxycodone for pain. No signs and symptoms of distress noted, no SOB, on RA O2 saturating 95%. PM care completed, patient kept clean dry and comfortable, linens changed. Skin intact warm and dry to touch. Picture of skin take and placed in chart, no new changes noted. Patient slept through the night no significant events reported. patient is comfortable. All needs attended to promptly.Safety measure in place, call light and all personal items within reach. will continue plan of care, endorse next shift accordingly.
[2020-04-23] MEDS: PANTOPRAZOLE SODIUM 40 MG TABLET.DR PO SCH (06:17)
[2020-04-23] MEDS: OXYCODONE/APAP 5-325 MG TABLET PO PRN ×2 (06:23→17:20)
--- NOTE | 2020-04-23 07:27 | NUR ---
ADMINISTERED OXYCODONE FOR PAIN PER REQUEST FROM PATIENT. PATIENT TIS LYING COMFORTABLY IN BED. AL NEEDS ATTENDED TO, CONTINUE PLAN OF ACRE.
[2020-04-23 08:27] VITALS: BP 125/49
[2020-04-23] MEDS: GUAIFENESIN LA 600 MG TABLET.SA PO SCH ×2 (09:25→20:39)
[2020-04-23] MEDS: buPROPion XL 150 MG TAB.SR.24H PO SCH (09:26)
[2020-04-23] MEDS: DONEPEZIL 10 MG TABLET PO SCH (09:26)
[2020-04-23] MEDS: MULTIVITAMINS,THERAPEUTIC TABLET PO SCH (09:26)
[2020-04-23] MEDS: AMLODIPINE 5 MG TABLET PO SCH (09:26)
[2020-04-23] MEDS: CEphaleXIN 500 MG CAPSULE PO SCH ×3 (09:26→16:21)
[2020-04-23] MEDS: LIDOCAINE 5% PATCH TD SCH (09:27)
[2020-04-23] MEDS: Z GUARD REMEDY PASTE 57 GM TUBE TOP SCH ×2 (09:27→20:40)
[2020-04-23] MEDS: FLUTICASONE/VILANTEROL 1 EACH BLST.W.DEV INH SCH (09:28)
[2020-04-23 16:22] VITALS: BP 119/50
--- NOTE | 2020-04-23 19:35 | NUR ---
Awake, in bed. appears confused and disoriented. Patient stating "I don't know what's going on with me? Seems like I'm lost and not myself". Denies any pain/discomforts at this time. Re-orientation rendered and will monitor. HL ON RFA intact and patent. NO s/s of infiltration noted. Safety measures and fall precaution maintained. Continue care as planned.
[2020-04-23 20:00] VITALS: BP 143/70
[2020-04-23] MEDS: DICYCLOMINE HCL 10 MG CAPSULE PO SCH (20:40)
[2020-04-23] MEDS: MIRTAZAPINE 15 MG TABLET PO SCH (20:40)
[2020-04-23] MEDS: DOCUSATE SODIUM 100 MG CAPSULE PO SCH (20:40)
[2020-04-23] MEDS: ATORVASTATIN 10 MG TABLET PO SCH (20:40)
[2020-04-24] MEDS: OXYCODONE/APAP 5-325 MG TABLET PO PRN ×2 (01:13→14:15)
[2020-04-24 04:00] VITALS: BP 127/44
--- NOTE | 2020-04-24 05:36 | NUR ---
Shift End Report: VS stable. Medicated with Percocet once with relief. No further complaint presented. Ambulatory to the bathroom with minimal assist. No fall/injury reported. All needs attended and met. NO significant event reported all night. Continue current rehab plan of care.
[2020-04-24] MEDS: PANTOPRAZOLE SODIUM 40 MG TABLET.DR PO SCH (06:05)
[2020-04-24] MEDS: FLUTICASONE/VILANTEROL 1 EACH BLST.W.DEV INH SCH (08:22)
[2020-04-24] MEDS: buPROPion XL 150 MG TAB.SR.24H PO SCH (08:23)
[2020-04-24] MEDS: CEphaleXIN 500 MG CAPSULE PO SCH ×3 (08:23→16:30)
[2020-04-24] MEDS: MULTIVITAMINS,THERAPEUTIC TABLET PO SCH (08:23)
[2020-04-24] MEDS: LIDOCAINE 5% PATCH TD SCH (08:23)
[2020-04-24] MEDS: GUAIFENESIN LA 600 MG TABLET.SA PO SCH (08:23)
[2020-04-24] MEDS: DONEPEZIL 10 MG TABLET PO SCH (08:23)
[2020-04-24] MEDS: AMLODIPINE 5 MG TABLET PO SCH (08:24)
[2020-04-24 08:41] VITALS: BP 124/53
[2020-04-24] MEDS: Z GUARD REMEDY PASTE 57 GM TUBE TOP SCH ×2 (09:20→20:25)
--- NOTE | 2020-04-24 09:46 | NUR ---
Patient awake, alert, in bed, not in any form of distress, on room air. Patient denies any pain or discomfort at this time. Patient is compliant with medications. Assisted patient to the bathroom and back to bed. Call light and frequently used items placed within patient's reach. Safety measures maintained.
[2020-04-24] MEDS ORDERED: ONDANSETRON 4 MG/2 ML VIAL IV PRN (11:15)
--- NOTE | 2020-04-24 11:20 | NUR ---
Patient complained of nausea and vomiting, informed Dr. De La Garza with new orders at this time. See order history.
--- NOTE | 2020-04-24 14:03 | NUR ---
INDIVIDUALIZED PLAN OF CARE
[2020-04-24 14:17] LABS: BASOPHILS # (AUTO) 0.1 K/uL (0.0-8.0); BASOPHILS % (AUTO) 0.8 % (0.0-2.0); EOSINOPHILS # (AUTO) 0.1 K/uL (0.0-0.7); EOSINOPHILS % (AUTO) 1.5 % (0.0-7.0); HEMATOCRIT 39.4 % (31.2-41.9); HEMOGLOBIN 12.8 g/dL (10.9-14.3); LYMPHOCYTES # (AUTO) 1.2 K/uL (20.0-40.0); LYMPHOCYTES % (AUTO) 16.3 % (20.5-51.5); MEAN CORPUSCULAR HEMOGLOBIN 27.1 uug (24.7-32.8); MEAN CORPUSCULAR HGB CONC 33 g/dL (32.3-35.6); MEAN CORPUSCULAR VOLUME 83.1 fL (75.5-95.3); MONOCYTES # (AUTO) 0.4 K/uL (2.0-10.0); MONOCYTES % (AUTO) 5.2 % (0.0-11.0); NEUTROPHILS # (AUTO) 5.8 K/uL (1.8-8.9); NEUTROPHILS % (AUTO) 76.2 % (38.5-71.5); PLATELET COUNT (AUTO) 270 K/uL (179-408); RED BLOOD CELL COUNT(AUTO) 4.74 MIL/uL (3.63-4.92); WHITE BLOOD COUNT (AUTO) 7.6 K/uL (3.8-11.8)
--- NOTE | 2020-04-24 14:37 | NUR ---
Patient up ambulating with a walker with physical therapist at this time.
[2020-04-24 14:50] LABS: BILIRUBIN,TOTAL 0.6 mg/dL (0.2-1.0); CREATININE 0.8 mg/dL (0.6-1.3); POTASSIUM 3.9 mmol/L (3.5-5.1); TOTAL PROTEIN, SERUM 7.4 g/dL (6.4-8.2)
[2020-04-24 15:01] VITALS: BP 97/58
--- NOTE | 2020-04-24 19:35 | NUR ---
In bed, awake, talking on her cell phone. Not in distress, no s/s of pain/discomforts. Safety measures and fall precaution maintained. Continue care as planned.
[2020-04-24 20:09] VITALS: BP 115/41
[2020-04-24] MEDS: DOCUSATE SODIUM 100 MG CAPSULE PO SCH (20:24)
[2020-04-24] MEDS: ATORVASTATIN 10 MG TABLET PO SCH (20:24)
[2020-04-24] MEDS: DICYCLOMINE HCL 10 MG CAPSULE PO SCH (20:24)
[2020-04-24] MEDS: MIRTAZAPINE 15 MG TABLET PO SCH (20:25)
[2020-04-25] MEDS: ALPRAZOLAM 0.5 MG TABLET PO PRN (01:20)
[2020-04-25 01:45] LABS: *BILIRUBIN,URIN NEGATIVE (NEGATIVE); *BLOOD, URINE NEGATIVE (NEGATIVE); *CLARITY,URINE CLEAR (CLEAR); *COLOR,URINE YELLOW (YELLOW); *KETONES,URINE NEGATIVE (NEGATIVE); *UROBILINOGEN,URINE 0.2 E.U./dl (NORMAL); LEUKOCYTE ESTERASE ,URINE 1+ (NEGATIVE); NITRITE, URINE NEGATIVE (NEGATIVE); UGLUCOSE NEGATIVE (NEGATIVE)
[2020-04-25 01:59] LABS: RBC,URINE 0-3 /HPF (0-3)
[2020-04-25 05:21] VITALS: BP 121/64
[2020-04-25] MEDS: PANTOPRAZOLE SODIUM 40 MG TABLET.DR PO SCH (06:30)
--- NOTE | 2020-04-25 06:32 | NUR ---
Shift End REPORT: Slept well after Xanax was given as ordered and needed. No significant event reported. All needs attended and met. VS stable. Continue current rehab plan of care.
[2020-04-25 07:45] VITALS: BP 116/49
[2020-04-25] MEDS: MULTIVITAMINS,THERAPEUTIC TABLET PO SCH (08:16)
[2020-04-25] MEDS: FLUTICASONE/VILANTEROL 1 EACH BLST.W.DEV INH SCH (08:16)
[2020-04-25] MEDS: DONEPEZIL 10 MG TABLET PO SCH (08:16)
[2020-04-25] MEDS: buPROPion XL 150 MG TAB.SR.24H PO SCH (08:16)
[2020-04-25] MEDS: AMLODIPINE 5 MG TABLET PO SCH (08:17)
[2020-04-25] MEDS: LIDOCAINE 5% PATCH TD SCH (08:18)
[2020-04-25] MEDS: Z GUARD REMEDY PASTE 57 GM TUBE TOP SCH ×2 (08:18→20:29)
[2020-04-25] MEDS: OXYCODONE/APAP 5-325 MG TABLET PO PRN ×2 (10:10→15:20)
[2020-04-25] MEDS ORDERED: OXYCODONE HCL 5 MG TABLET PO PRN (12:30)
[2020-04-25 15:57] VITALS: BP 112/50
--- NOTE | 2020-04-25 18:34 | NUR ---
Patient remains alert, not in any form of distress, on room air. Patient participated with therapy. She complained of pain on her lower back and left hip, given PRN pain medication as ordered with noted relief. No complain of nausea or vomiting. Due medications administered and tolerated well. Assisted with her needs promptly. Call light and frequently used items placed within patient's reach.
[2020-04-25] MEDS: MIRTAZAPINE 15 MG TABLET PO SCH (20:23)
[2020-04-25] MEDS: DOCUSATE SODIUM 100 MG CAPSULE PO SCH (20:23)
[2020-04-25] MEDS: DICYCLOMINE HCL 10 MG CAPSULE PO SCH (20:23)
[2020-04-25 20:27] VITALS: BP 94/39
--- NOTE | 2020-04-25 22:35 | NUR ---
PATIENT ALERT ORIENTED, NO SOB NO CHEST PAIN, PATIENT HAS NO COMPLAIN OF PAIN AT THIS TIME. PATIENT ASSISTED WITH TOILETING, ASSISTED WITH GOOD LYNSEY CARE, CALL LIGHT WITHIN REACH.
--- NOTE | 2020-04-25 23:45 | NUR ---
Interdisciplinary Team Conference
--- NOTE | 2020-04-26 06:05 | NUR ---
PATIENT ALERT ORIENTED, NO SOB NO CHEST PAIN, HAS LOWER BACK PAIN AND LEFT HIP PAIN, PAIN RELIEVE THRU REST AND IMMOBILITY. PATIENT COMPLAIN OF CARDIAC DIET, STATED THAT IT HAS NO TASTE. IWONA FRY AT THE STATION AND NOTIFY HIM OKEYED THE REGULAR DIET LONG PATIENT EATING. PATIENT SLEPT MOST OF THE NIGHT, ASSISTED WITH TOILETING, VOIDED WITH LARGE URINE WITH YELLOW COLOR URINE, CALL LIGHT WITHIN REACH.
[2020-04-26 06:49] VITALS: BP 105/58
[2020-04-26] MEDS: PANTOPRAZOLE SODIUM 40 MG TABLET.DR PO SCH (07:02)
[2020-04-26 08:00] VITALS: BP 124/74
[2020-04-26] MEDS: DONEPEZIL 10 MG TABLET PO SCH (09:16)
[2020-04-26] MEDS: OXYCODONE/APAP 5-325 MG TABLET PO PRN (09:16)
[2020-04-26] MEDS: buPROPion XL 150 MG TAB.SR.24H PO SCH (09:16)
[2020-04-26] MEDS: MULTIVITAMINS,THERAPEUTIC TABLET PO SCH (09:16)
[2020-04-26] MEDS: AMLODIPINE 5 MG TABLET PO SCH (09:19)
[2020-04-26] MEDS: LIDOCAINE 5% PATCH TD SCH (09:20)
[2020-04-26] MEDS: Z GUARD REMEDY PASTE 57 GM TUBE TOP SCH ×2 (09:20→20:26)
--- NOTE | 2020-04-26 09:31 | NUR ---
Received patient in room, Pt. is AAO x 4. No acute distress noted. Vital signs stable. Patient complained of pain on left lower back. Percocet 5/325 1 tab administered and tolerated. Patient also seen by Dr. De La Garza. All morning due meds administered as ordered and scheduled. Patient on PT/OT therapy. Pt. is ambulatory with a walker, 1 person assist and brp. Safety measures in place and will continue with care.
[2020-04-26] MEDS: FLUTICASONE/VILANTEROL 1 EACH BLST.W.DEV INH SCH (11:16)
[2020-04-26] MEDS ORDERED: DEXAMETHASONE 4 MG TABLET PO SCH (12:30)
[2020-04-26] MEDS: CARISOPRODOL 350 MG TABLET PO PRN ×2 (12:47→20:25)
--- NOTE | 2020-04-26 13:00 | NUR ---
Patient seen by Dr. Espinoza spoke with patient. discontinued Wellbutrin and patient started on Cymbalta 30mg PO Daily. will continue with care.
[2020-04-26 16:35] VITALS: BP 113/44
--- NOTE | 2020-04-26 18:10 | NUR ---
Patient ate dinner, sleeping at this moment easy to arouse. NO SOB noted. PRN Soma 350mg 1 tab PO TIDPRN administered per patient request and effective. Patient was up with PT. Skin kept clean and dry. All safety measures in place, needs attended, call light left within easy reach and will continue with care.
--- NOTE | 2020-04-26 19:30 | NUR ---
RECEIVED PATIENT IN BED, ASLEEP, EASILY AROUSED. NO FACIAL GRIMACING OBSERVED. WILL CONTINUE TO OBSERVE FALL AND SAFETY PRECAUTIONS.
[2020-04-26 20:00] VITALS: BP 124/49
[2020-04-26] MEDS: DICYCLOMINE HCL 10 MG CAPSULE PO SCH (20:25)
[2020-04-26] MEDS: DOCUSATE SODIUM 100 MG CAPSULE PO SCH (20:25)
[2020-04-26] MEDS: MIRTAZAPINE 15 MG TABLET PO SCH (20:26)
[2020-04-27 04:00] VITALS: BP 112/49
[2020-04-27] MEDS: PANTOPRAZOLE SODIUM 40 MG TABLET.DR PO SCH (06:21)
[2020-04-27 08:00] VITALS: BP 102/60
[2020-04-27] MEDS: DULOXETINE 30 MG CAPSULE.DR PO SCH (08:19)
[2020-04-27] MEDS: DONEPEZIL 10 MG TABLET PO SCH (08:19)
[2020-04-27] MEDS: MULTIVITAMINS,THERAPEUTIC TABLET PO SCH (08:19)
[2020-04-27] MEDS: LIDOCAINE 5% PATCH TD SCH (08:21)
[2020-04-27] MEDS: FLUTICASONE/VILANTEROL 1 EACH BLST.W.DEV INH SCH (08:21)
[2020-04-27] MEDS: AMLODIPINE 5 MG TABLET PO SCH (08:23)
[2020-04-27] MEDS: Z GUARD REMEDY PASTE 57 GM TUBE TOP SCH ×2 (08:27→20:30)
[2020-04-27] MEDS ORDERED: DEXAMETHASONE 4 MG TABLET PO SCH (09:00)
[2020-04-27] MEDS: OXYCODONE/APAP 5-325 MG TABLET PO PRN (09:06)
--- NOTE | 2020-04-27 10:00 | NUR ---
Patient AAO x4, NO SOB or any distress noted. Vital signs stable. Due morning meds administered as ordered and scheduled and tolerated well. Patient requested and medicated with Percocet 5/325 1 tab for pain before PT therapy and effective. Patient with PT at this time. Safety measures in place, call light left within easy reach and will continue with care.
[2020-04-27] MEDS: MAGNESIUM HYDROXIDE 30 ML LIQUID UDC PO PRN (12:30)
[2020-04-27] MEDS: predniSONE 20 MG TABLET PO SCH (12:30)
[2020-04-27] MEDS: CARISOPRODOL 350 MG TABLET PO PRN (13:45)
[2020-04-27] MEDS: OXYCODONE HCL 5 MG TABLET PO SCH ×2 (15:27→21:51)
[2020-04-27 16:00] VITALS: BP 129/76
--- NOTE | 2020-04-27 16:50 | NUR ---
Patient in stable condition, vital signs stable. Resting comfortably at this time. Patient received scheduled Oxycodone 10mg PO Q 8hrs for pain mgnt as ordered, Pt. stated effective. IV line on left FA d/c. Skin kept clean and dry. Needs attended and met and will continue with care.
--- NOTE | 2020-04-27 19:35 | NUR ---
Awake and alert. Watching TV at this time. No s/s of pain/discomforts. No s/s of respiratory distress noted. Safety measures and fall precaution maintained. Continue care as planned.
--- NOTE | 2020-04-27 19:41 | NUR ---
End of shift report given to pm nurse.
[2020-04-27 20:00] VITALS: BP 115/64
[2020-04-27] MEDS: DOCUSATE SODIUM 100 MG CAPSULE PO SCH (20:29)
[2020-04-27] MEDS: DICYCLOMINE HCL 10 MG CAPSULE PO SCH (20:29)
[2020-04-27] MEDS: MIRTAZAPINE 15 MG TABLET PO SCH (20:30)
[2020-04-27] MEDS: NITROFURANTOIN/NITROFURAN MAC 100 MG CAPSULE PO SCH (20:30)
[2020-04-28] MEDS: PANTOPRAZOLE SODIUM 40 MG TABLET.DR PO SCH (06:09)
[2020-04-28] MEDS: OXYCODONE HCL 5 MG TABLET PO SCH ×3 (06:09→21:23)
[2020-04-28 06:25] VITALS: BP 122/64
--- NOTE | 2020-04-28 06:39 | NUR ---
Shift End Report: Slept well. No complaint of pain presented all night. Verbalized dissatisfaction of foods served and availability of foods she wants. No fall/injury reported. All needs attended and met. No significant event reported. Continue current rehab plan of care. Vs stable. No respiratory distress noted.
[2020-04-28 08:00] VITALS: BP 145/49
[2020-04-28] MEDS: DULOXETINE 30 MG CAPSULE.DR PO SCH (08:20)
[2020-04-28] MEDS: FLUTICASONE/VILANTEROL 1 EACH BLST.W.DEV INH SCH (08:20)
[2020-04-28] MEDS: MULTIVITAMINS,THERAPEUTIC TABLET PO SCH (08:20)
[2020-04-28] MEDS: NITROFURANTOIN/NITROFURAN MAC 100 MG CAPSULE PO SCH ×2 (08:20→20:44)
[2020-04-28] MEDS: predniSONE 20 MG TABLET PO SCH (08:20)
[2020-04-28] MEDS: DONEPEZIL 10 MG TABLET PO SCH (08:20)
[2020-04-28] MEDS: LIDOCAINE 5% PATCH TD SCH (08:21)
[2020-04-28] MEDS: AMLODIPINE 5 MG TABLET PO SCH (08:24)
[2020-04-28] MEDS: Z GUARD REMEDY PASTE 57 GM TUBE TOP SCH ×2 (09:39→20:44)
[2020-04-28] MEDS: MAGNESIUM HYDROXIDE 30 ML LIQUID UDC PO PRN (15:10)
[2020-04-28 16:00] VITALS: BP 140/51
--- NOTE | 2020-04-28 18:03 | NUR ---
Received an order from Dr. De La Garza to shift Ondansetron to 4mg PO Q6 hrs PRN.
--- NOTE | 2020-04-28 18:34 | NUR ---
Patient complained of nausea, offered Zofran PRN as ordered but patient refused. Patient denies any pain or discomfort at this time. Needs attended to promptly. Patient refused scheduled oxycodone. Dr. Hernandes saw patient , update given to MD, no new order at this time.
--- NOTE | 2020-04-28 19:40 | NUR ---
Awake, watching TV at this time. Very pleasant and cheerful. Responds coherently at this time. Denies any pain/discomforts. Safety measure and fall precaution maintained. Continue care as planned.
[2020-04-28 20:21] VITALS: BP 110/45
[2020-04-28] MEDS: MIRTAZAPINE 15 MG TABLET PO SCH (20:43)
[2020-04-28] MEDS: DICYCLOMINE HCL 10 MG CAPSULE PO SCH (20:43)
[2020-04-28] MEDS: DOCUSATE SODIUM 100 MG CAPSULE PO SCH (20:44)
[2020-04-28] MEDS: OXYCODONE/APAP 5-325 MG TABLET PO PRN (23:15)
[2020-04-29] MEDS: CARISOPRODOL 350 MG TABLET PO PRN (04:17)
[2020-04-29 04:40] VITALS: BP 128/53
--- NOTE | 2020-04-29 05:40 | NUR ---
Shift End Report: Slept good. Continue on antibiotics for UTI as ordered without s/s of adverse reaction. Encouraged and offered adequate amount of oral fluid to flush down infection. Ambulatory to the bathroom with one person assist and walker. No fall/injury. All needs attended and met. No significant event reported all night. Continue current rehab plan of care. VS stable.
[2020-04-29] MEDS: PANTOPRAZOLE SODIUM 40 MG TABLET.DR PO SCH (06:06)
[2020-04-29] MEDS: OXYCODONE HCL 5 MG TABLET PO SCH ×3 (06:06→21:23)
[2020-04-29] MEDS: DONEPEZIL 10 MG TABLET PO SCH (08:36)
[2020-04-29] MEDS: FLUTICASONE/VILANTEROL 1 EACH BLST.W.DEV INH SCH (08:36)
[2020-04-29] MEDS: DULOXETINE 30 MG CAPSULE.DR PO SCH (08:36)
[2020-04-29] MEDS: NITROFURANTOIN/NITROFURAN MAC 100 MG CAPSULE PO SCH ×2 (08:37→21:24)
[2020-04-29] MEDS: MULTIVITAMINS,THERAPEUTIC TABLET PO SCH (08:37)
[2020-04-29] MEDS: LIDOCAINE 5% PATCH TD SCH (08:37)
[2020-04-29] MEDS: AMLODIPINE 5 MG TABLET PO SCH (08:53)
[2020-04-29] MEDS: Z GUARD REMEDY PASTE 57 GM TUBE TOP SCH ×2 (08:54→21:24)
[2020-04-29] MEDS: ONDANSETRON HCL 4 MG TABLET PO PRN (11:29)
[2020-04-29] MEDS: MAGNESIUM HYDROXIDE 30 ML LIQUID UDC PO PRN (13:45)
[2020-04-29 16:00] VITALS: BP 138/51
--- NOTE | 2020-04-29 18:51 | NUR ---
Patient remains alert, oriented x 3, not in any form of distress, on room air, ambulatory with walker with assist. Patient is compliant with medications. She denies any pain. Patient complained of nausea and vomiting, given prn zofran as ordered with noted relief. Assisted with her needs promptly. Call light and frequently used items placed within patient's reach. Safety measures maintained.
--- NOTE | 2020-04-29 19:30 | NUR ---
Sleeping comfortably during initial rounds with HOB slightly elevated. No s/s of respiratory distress. Safety measures and fall precaution maintained. Continue care as planned.
[2020-04-29 20:34] VITALS: BP 122/40
[2020-04-29] MEDS: DOCUSATE SODIUM 100 MG CAPSULE PO SCH (21:23)
[2020-04-29] MEDS: MIRTAZAPINE 15 MG TABLET PO SCH (21:23)
[2020-04-29] MEDS: DICYCLOMINE HCL 10 MG CAPSULE PO SCH (21:24)
[2020-04-30] MEDS: ALPRAZOLAM 0.5 MG TABLET PO PRN (00:16)
[2020-04-30] MEDS: OXYCODONE HCL 5 MG TABLET PO SCH ×3 (05:42→22:41)
[2020-04-30] MEDS: PANTOPRAZOLE SODIUM 40 MG TABLET.DR PO SCH (05:45)
--- NOTE | 2020-04-30 05:55 | NUR ---
Shift End Report: Slept good after medicated with Xanax as ordered and needed. No further complaint of pain presented. Oxy IR routine medication given as due with help. Complaint of nausea but refused Zofran medication offered. No emesis noted. All needs attended and met. No significant event reported all night. Continue current rehab plan of care.
[2020-04-30 06:20] VITALS: BP 106/43
[2020-04-30 06:46] LABS: BASOPHILS # (AUTO) 0.1 K/uL (0.0-8.0); BASOPHILS % (AUTO) 0.8 % (0.0-2.0); EOSINOPHILS # (AUTO) 0.3 K/uL (0.0-0.7); EOSINOPHILS % (AUTO) 4.2 % (0.0-7.0); HEMATOCRIT 38.7 % (31.2-41.9); HEMOGLOBIN 12.4 g/dL (10.9-14.3); LYMPHOCYTES # (AUTO) 2.3 K/uL (20.0-40.0); LYMPHOCYTES % (AUTO) 30.9 % (20.5-51.5); MEAN CORPUSCULAR HEMOGLOBIN 26.6 uug (24.7-32.8); MEAN CORPUSCULAR HGB CONC 32 g/dL (32.3-35.6); MEAN CORPUSCULAR VOLUME 83.4 fL (75.5-95.3); MONOCYTES # (AUTO) 0.6 K/uL (2.0-10.0); MONOCYTES % (AUTO) 8.7 % (0.0-11.0); NEUTROPHILS # (AUTO) 4.1 K/uL (1.8-8.9); NEUTROPHILS % (AUTO) 55.4 % (38.5-71.5); PLATELET COUNT (AUTO) 364 K/uL (179-408); RED BLOOD CELL COUNT(AUTO) 4.65 MIL/uL (3.63-4.92); WHITE BLOOD COUNT (AUTO) 7.3 K/uL (3.8-11.8)
[2020-04-30 06:58] LABS: BILIRUBIN,TOTAL 0.4 mg/dL (0.2-1.0); CREATININE 1.2 mg/dL (0.6-1.3); POTASSIUM 4.4 mmol/L (3.5-5.1); TOTAL PROTEIN, SERUM 7.4 g/dL (6.4-8.2)
[2020-04-30 08:56] VITALS: BP 96/46
[2020-04-30] MEDS: AMLODIPINE 5 MG TABLET PO SCH (09:00)
[2020-04-30] MEDS: FLUTICASONE/VILANTEROL 1 EACH BLST.W.DEV INH SCH (09:06)
[2020-04-30] MEDS: DONEPEZIL 10 MG TABLET PO SCH (09:07)
[2020-04-30] MEDS: DULOXETINE 30 MG CAPSULE.DR PO SCH (09:07)
[2020-04-30] MEDS: MULTIVITAMINS,THERAPEUTIC TABLET PO SCH (09:08)
[2020-04-30] MEDS: LIDOCAINE 5% PATCH TD SCH (09:08)
[2020-04-30] MEDS: Z GUARD REMEDY PASTE 57 GM TUBE TOP SCH ×2 (09:09→20:28)
--- NOTE | 2020-04-30 15:47 | NUR ---
patient is alert, awake, no sob, no distress noted, participated in PT, OT services, tolerated well, continue on atb for uti, no adverse reactions noted, no nausea, no vomiting, continue to keep comfortable, needs attended timely
[2020-04-30 16:07] VITALS: BP 111/49
--- NOTE | 2020-04-30 20:07 | NUR ---
Sleeping comfortably during initial rounds. HOB slightly elevated. No s/s of respiratory distress. Safety measures and fall precaution maintained. Continue care as planned.
[2020-04-30] MEDS: DICYCLOMINE HCL 10 MG CAPSULE PO SCH (20:28)
[2020-04-30] MEDS: DOCUSATE SODIUM 100 MG CAPSULE PO SCH (20:28)
[2020-04-30] MEDS: MIRTAZAPINE 15 MG TABLET PO SCH (20:28)
[2020-04-30 20:48] VITALS: BP 119/56
[2020-05-01 05:36] VITALS: BP 136/57
[2020-05-01] MEDS: OXYCODONE HCL 5 MG TABLET PO SCH ×3 (05:47→21:52)
[2020-05-01] MEDS: PANTOPRAZOLE SODIUM 40 MG TABLET.DR PO SCH (05:47)
--- NOTE | 2020-05-01 05:51 | NUR ---
Shift End Report: Slept good, All needs attended and met. NO s/s of adverse reaction noted from [facility] antibiotic. Encouraged adequate amount of oral intake as tolerated unless contraindicated. No significant event reported all night. Continue current rehab plan of care.
[2020-05-01 07:30] VITALS: BP 127/59
[2020-05-01] MEDS: AMLODIPINE 5 MG TABLET PO SCH (08:10)
[2020-05-01] MEDS: DULOXETINE 30 MG CAPSULE.DR PO SCH (08:10)
[2020-05-01] MEDS: MULTIVITAMINS,THERAPEUTIC TABLET PO SCH (08:11)
[2020-05-01] MEDS: LIDOCAINE 5% PATCH TD SCH (08:11)
[2020-05-01] MEDS: Z GUARD REMEDY PASTE 57 GM TUBE TOP SCH ×2 (08:11→20:56)
[2020-05-01] MEDS: DONEPEZIL 10 MG TABLET PO SCH (08:11)
[2020-05-01] MEDS: FLUTICASONE/VILANTEROL 1 EACH BLST.W.DEV INH SCH (08:12)
--- NOTE | 2020-05-01 13:58 | NUR ---
patient is alert, oriented x3, verbally responsive, no sob,resp even nonlabored, skin warm and dry to touch, participated in PT, OT services, independent in bed mobility, needs attended timely. no distress noted, no nausea, no vomiting, continue on atb for uti, no adverse reactions noted.
[2020-05-01 16:50] VITALS: BP 92/68
[2020-05-01 20:51] VITALS: BP 148/64
[2020-05-01] MEDS: DICYCLOMINE HCL 10 MG CAPSULE PO SCH (20:56)
[2020-05-01] MEDS: DOCUSATE SODIUM 100 MG CAPSULE PO SCH (20:56)
[2020-05-01] MEDS: MIRTAZAPINE 15 MG TABLET PO SCH (20:56)
--- NOTE | 2020-05-01 21:12 | NUR ---
Received pt resting in bed. AAO x3. No acute distress noted. Denies pain/ discomfort. Refused scheduled Oxyir at this time. Other due meds given as ordered. Pt had snack. Safety measures maintained. Call light and personal items within reach. Will continue to monitor.
[2020-05-02 05:09] VITALS: BP 130/51
[2020-05-02] MEDS: PANTOPRAZOLE SODIUM 40 MG TABLET.DR PO SCH (06:10)
[2020-05-02] MEDS: OXYCODONE HCL 5 MG TABLET PO SCH ×3 (06:17→22:00)
[2020-05-02] MEDS: MULTIVITAMINS,THERAPEUTIC TABLET PO SCH (08:11)
[2020-05-02] MEDS: DONEPEZIL 10 MG TABLET PO SCH (08:11)
[2020-05-02] MEDS: DULOXETINE 30 MG CAPSULE.DR PO SCH (08:11)
[2020-05-02] MEDS: FLUTICASONE/VILANTEROL 1 EACH BLST.W.DEV INH SCH (08:11)
[2020-05-02] MEDS: LIDOCAINE 5% PATCH TD SCH (08:11)
[2020-05-02] MEDS: AMLODIPINE 5 MG TABLET PO SCH (08:12)
[2020-05-02] MEDS: Z GUARD REMEDY PASTE 57 GM TUBE TOP SCH ×2 (08:12→20:02)
[2020-05-02 08:43] VITALS: BP 143/64
[2020-05-02] MEDS: MAGNESIUM HYDROXIDE 30 ML LIQUID UDC PO PRN (09:33)
--- NOTE | 2020-05-02 09:49 | NUR ---
Received patient awake in bed in stable condition. AOX3. Patient compliance with medication. Continue pain management routine and if needed. Applied lidocaine patch on lower back with good effect. Patient continue therapy for increase strenght and increase endurance. tolerated well. not in distress. will continue monitor
--- NOTE | 2020-05-02 11:01 | NUR ---
INTERDISCIPLINARY TEAM CONFERENCE
[2020-05-02 15:26] VITALS: BP_SYST 140; BP_SYST 162; BP_DIAS 49; BP_DIAS 65
--- NOTE | 2020-05-02 17:55 | NUR ---
Patient abrasion left and right leg noted. Patient was interviewed and verbalized "Its old and I scratch it and its bleed." Patient wound cleanse and covered with surgical gauze. Picture taken. MD Cornejo notified. Skin intervention updated. will continue monitor
--- NOTE | 2020-05-02 19:38 | NUR ---
RECEIVED PATIENT IN BED, WITH HEAD OF BED AT 15 DEGREES. ALERT, ORIENTED, ABLE TO MAKE NEEDS KNOWN. NO COMPLAINTS OF PAIN AT THIS TIME. FALL AND SAFETY PRECAUTIONS OBSERVED. WILL CONTINUE TO MONITOR PATIENT AND ATTEND TO PATIENT'S NEEDS.
[2020-05-02] MEDS: MIRTAZAPINE 15 MG TABLET PO SCH (20:02)
[2020-05-02] MEDS: DOCUSATE SODIUM 100 MG CAPSULE PO SCH (20:02)
[2020-05-02] MEDS: DICYCLOMINE HCL 10 MG CAPSULE PO SCH (20:02)
[2020-05-02 20:29] VITALS: BP 130/67
--- NOTE | 2020-05-03 05:07 | NUR ---
PATIENT SLEPT WELL THROUGH THE NIGHT. NO COMPLAINTS OF PAIN THROUGH THE NIGHT. IN NO RESPIRATORY OR ACUTE DISTRESS. ALL NEEDS ATTENDED. FALL AND SAFETY PRECAUTIONS OBSERVED.
[2020-05-03] MEDS: OXYCODONE HCL 5 MG TABLET PO SCH ×4 (06:00→21:26)
[2020-05-03 06:05] VITALS: BP 135/66
[2020-05-03] MEDS: PANTOPRAZOLE SODIUM 40 MG TABLET.DR PO SCH (06:30)
[2020-05-03 07:03] LABS: BILIRUBIN,TOTAL 0.5 mg/dL (0.2-1.0); POTASSIUM 5.3 mmol/L (3.5-5.1); TOTAL PROTEIN, SERUM 6.8 g/dL (6.4-8.2)
[2020-05-03 08:00] VITALS: BP 123/60
[2020-05-03] MEDS: MULTIVITAMINS,THERAPEUTIC TABLET PO SCH (08:40)
[2020-05-03] MEDS: DONEPEZIL 10 MG TABLET PO SCH (08:40)
[2020-05-03] MEDS: AMLODIPINE 5 MG TABLET PO SCH (08:41)
[2020-05-03] MEDS: DULOXETINE 30 MG CAPSULE.DR PO SCH (08:41)
[2020-05-03] MEDS: FLUTICASONE/VILANTEROL 1 EACH BLST.W.DEV INH SCH (08:42)
[2020-05-03] MEDS: LIDOCAINE 5% PATCH TD SCH (08:42)
[2020-05-03] MEDS: Z GUARD REMEDY PASTE 57 GM TUBE TOP SCH ×2 (08:43→21:23)
[2020-05-03] MEDS ORDERED: NEOMY/BACITRAC/POLYMI OINT 28.35 GM TUBE TOP SCH (09:00)
--- NOTE | 2020-05-03 10:45 | NUR ---
Received patient sleeping in bed. not in distress. Patient compliance with medication and continue therapy for unsteady gait. Denies pain/discomfort prior to therapy. Patient continue pain management routinely. Patient continue fall risk precaution. Assisted to bathroom with walker. tolerated well. will continue monitor
[2020-05-03] MEDS: MAGNESIUM HYDROXIDE 30 ML LIQUID UDC PO PRN (13:01)
[2020-05-03 16:23] VITALS: BP 145/50
--- NOTE | 2020-05-03 19:40 | NUR ---
Received Patient in bed. AAO x4. No acute distress or SOB was noted. On room air. Able to make needs known. Complained of pain on her lower back, rated 4/10 in numeric scale. Safety measures maintained, fall prevention observed. Skin assessed. Bed in locked and low position, side rails up x2 for safety, bed alarm on. Call light and frequently using items within reach. Continue to monitor.
[2020-05-03 19:47] VITALS: BP 110/43
[2020-05-03] MEDS: MIRTAZAPINE 15 MG TABLET PO SCH (21:22)
[2020-05-03] MEDS: DOCUSATE SODIUM 100 MG CAPSULE PO SCH (21:22)
[2020-05-03] MEDS: DICYCLOMINE HCL 10 MG CAPSULE PO SCH (21:22)
--- NOTE | 2020-05-04 01:50 | NUR ---
Patient asked for sleeping pill. Contacted [facility] on-call and received order of Ambien 5 mg tab once from Bl[facility] Gutierrez [facility]. Medication administered. Continue to monitor.
[2020-05-04] MEDS ORDERED: ZOLPIDEM 5 MG TABLET PO ONE (02:00)
[2020-05-04 04:40] VITALS: BP 122/62
[2020-05-04] MEDS: PANTOPRAZOLE SODIUM 40 MG TABLET.DR PO SCH (06:14)
[2020-05-04] MEDS: OXYCODONE HCL 5 MG TABLET PO SCH ×3 (06:15→21:14)
[2020-05-04 08:00] VITALS: BP 140/57
[2020-05-04] MEDS: MULTIVITAMINS,THERAPEUTIC TABLET PO SCH (09:40)
[2020-05-04] MEDS: DONEPEZIL 10 MG TABLET PO SCH (09:40)
[2020-05-04] MEDS: DULOXETINE 30 MG CAPSULE.DR PO SCH (09:40)
[2020-05-04] MEDS: AMLODIPINE 5 MG TABLET PO SCH (09:40)
[2020-05-04] MEDS: FLUTICASONE/VILANTEROL 1 EACH BLST.W.DEV INH SCH (09:40)
[2020-05-04] MEDS: LIDOCAINE 5% PATCH TD SCH (09:41)
[2020-05-04] MEDS: NEOMY/BACITRAC/POLYMI OINT 28.35 GM TUBE TOP SCH (09:46)
[2020-05-04] MEDS: Z GUARD REMEDY PASTE 57 GM TUBE TOP SCH ×2 (09:47→21:10)
[2020-05-04] MEDS: MAGNESIUM HYDROXIDE 30 ML LIQUID UDC PO PRN (14:29)
[2020-05-04 15:53] VITALS: BP 123/57
[2020-05-04] MEDS: ONDANSETRON HCL 4 MG TABLET PO PRN (17:42)
--- NOTE | 2020-05-04 17:49 | NUR ---
Pt has remained stable throughout the shift. Pt compliant medication administration and cooperative with therapies as offered. Upon returning from therapy, emesis episode x1 with nausea reported. Zofran administered per PRN orders, along with crackers and encouraged hydration. Pt requests to rest at this time. VSS. All safety measures implemented. Call light within reach. Will continue to monitor and endorse to night shift supervisor.
[2020-05-04 20:14] VITALS: BP 130/55
[2020-05-04] MEDS: MIRTAZAPINE 15 MG TABLET PO SCH (21:09)
[2020-05-04] MEDS: DICYCLOMINE HCL 10 MG CAPSULE PO SCH (21:10)
[2020-05-04] MEDS: DOCUSATE SODIUM 100 MG CAPSULE PO SCH (21:10)
--- NOTE | 2020-05-05 04:36 | NUR ---
Received Patient in bed. AAO x4. No acute distress or SOB was noted. On room air. Able to make needs known. Complained of pain on her back. All due medication given as ordered and well tolerated. Safety measures maintained, fall prevention observed. Skin assessed. All needs attended promptly. Bed in locked and low position, side rails up x2 for safety, bed alarm on. Call light and frequently using items within reach. Continue to monitor and will endorse to the oncoming nurse accordingly.
[2020-05-05 05:29] VITALS: BP 130/49
[2020-05-05] MEDS: OXYCODONE HCL 5 MG TABLET PO SCH ×3 (06:13→21:39)
[2020-05-05] MEDS: PANTOPRAZOLE SODIUM 40 MG TABLET.DR PO SCH (06:13)
[2020-05-05 06:29] LABS: CREATININE 1.1 mg/dL (0.6-1.3); POTASSIUM 4.8 mmol/L (3.5-5.1)
[2020-05-05 08:46] VITALS: BP 118/41
[2020-05-05] MEDS: AMLODIPINE 5 MG TABLET PO SCH (09:00)
[2020-05-05] MEDS: MAGNESIUM HYDROXIDE 30 ML LIQUID UDC PO PRN (09:12)
[2020-05-05] MEDS: MULTIVITAMINS,THERAPEUTIC TABLET PO SCH (09:30)
[2020-05-05] MEDS: DONEPEZIL 10 MG TABLET PO SCH (09:30)
[2020-05-05] MEDS: DULOXETINE 30 MG CAPSULE.DR PO SCH (09:30)
[2020-05-05] MEDS: LIDOCAINE 5% PATCH TD SCH (09:31)
[2020-05-05] MEDS: NEOMY/BACITRAC/POLYMI OINT 28.35 GM TUBE TOP SCH (09:32)
[2020-05-05] MEDS: Z GUARD REMEDY PASTE 57 GM TUBE TOP SCH ×2 (09:32→20:11)
[2020-05-05] MEDS: ONDANSETRON HCL 4 MG TABLET PO PRN ×2 (09:38→19:58)
[2020-05-05] MEDS: FLUTICASONE/VILANTEROL 1 EACH BLST.W.DEV INH SCH (11:09)
[2020-05-05 15:59] VITALS: BP 112/43
--- NOTE | 2020-05-05 19:17 | NUR ---
Patient AAO x 4, NO acute distress noted. Vital signs stable. Due medications administered as ordered and scheduled and tolerated well. On PT/OT therapy. Patient c/o nausea x 1, Zofran 4mg 1 tab PO administered and effective. All other needs attended, safety measures in place, call light left within easy reach and will continue with care.
--- NOTE | 2020-05-05 19:30 | NUR ---
Sleeping comfortably during initial rounds. No s/s of respiratory distress. Safety measures and fall precaution maintained. Continue care as planned.
[2020-05-05 20:00] VITALS: BP 112/56
[2020-05-05] MEDS: DICYCLOMINE HCL 10 MG CAPSULE PO SCH (20:11)
[2020-05-05] MEDS: MIRTAZAPINE 15 MG TABLET PO SCH (20:11)
[2020-05-05] MEDS: DOCUSATE SODIUM 100 MG CAPSULE PO SCH (20:11)
[2020-05-06] MEDS: ALPRAZOLAM 0.5 MG TABLET PO PRN (00:38)
[2020-05-06 04:00] VITALS: BP 118/62
[2020-05-06] MEDS: PANTOPRAZOLE SODIUM 40 MG TABLET.DR PO SCH (06:07)
[2020-05-06] MEDS: OXYCODONE HCL 5 MG TABLET PO SCH ×2 (06:07→14:37)
--- NOTE | 2020-05-06 06:12 | NUR ---
Shift End Report: Slept good. Complaint of nausea once, medicated with Zofran as ordered and needed with relief. No further complaint presented. No fall/injury. All need attended and met. No significant event reported all night. Continue current rehab plan of care. VS stable.
[2020-05-06 06:45] LABS: BILIRUBIN,TOTAL 0.4 mg/dL (0.2-1.0); CREATININE 1.1 mg/dL (0.6-1.3); POTASSIUM 4.6 mmol/L (3.5-5.1); TOTAL PROTEIN, SERUM 6.5 g/dL (6.4-8.2)
[2020-05-06 08:00] VITALS: BP 102/46
[2020-05-06] MEDS: MULTIVITAMINS,THERAPEUTIC TABLET PO SCH (08:16)
[2020-05-06] MEDS: LIDOCAINE 5% PATCH TD SCH (08:16)
[2020-05-06] MEDS: DULOXETINE 30 MG CAPSULE.DR PO SCH (08:17)
[2020-05-06] MEDS: DONEPEZIL 10 MG TABLET PO SCH (08:18)
[2020-05-06] MEDS: AMLODIPINE 5 MG TABLET PO SCH (08:20)
[2020-05-06] MEDS: FLUTICASONE/VILANTEROL 1 EACH BLST.W.DEV INH SCH (08:20)
[2020-05-06] MEDS: NEOMY/BACITRAC/POLYMI OINT 28.35 GM TUBE TOP SCH (08:21)
[2020-05-06] MEDS: Z GUARD REMEDY PASTE 57 GM TUBE TOP SCH (08:21)
[2020-05-06 14:04] VITALS: BP 118/56
[2020-05-06] MEDS: MAGNESIUM HYDROXIDE 30 ML LIQUID UDC PO PRN (15:11)
--- NOTE | 2020-05-06 17:21 | NUR ---
patient is alert, oriented x4, verbally responsive, no sob, resp even nonlabored,skin warm and dry to touch, being discharged home today, son is going to pick her up, discharge instructions given to patient, verbalized understanding of it, able to fully read the instructions and teaching, patient read it loud, belongings are accounted and signed, no new skin issues noted, patient has dry scabs on both forearms, patient noted scratching herself. no skin issues at heels, both heels skin in intact. no skin issues noted at coccyx area or buttocks, cleans, dry, intact, no redness. waiting for son to picket [employer] the patient, prescription included in the packed as well.
--- NOTE | 2020-05-06 18:48 | NUR ---
patient discharged home with daughter, transfferred safely to the car, instruction given to daughter as well, verbalized understanding of it
== END 2020-05-06 18:48 | disposition home health service (06) | DRG 552 ==
PROVIDERS: ADMIT Physical Medicine & Rehabilitation Pain Medicine; ATTEND Physical Medicine & Rehabilitation Pain Medicine
DX: M51.36 Other intervertebral disc degeneration, lumbar region (principal); D68.59 Other primary thrombophilia; N39.0 Urinary tract infection, site not specified; M48.56XD Collapsed vertebra, not elsewhere classified, lumbar region, subsequent encounter for fracture with routine healing; M48.54XD Collapsed vertebra, not elsewhere classified, thoracic region, subsequent encounter for fracture with routine healing; M51.26 Other intervertebral disc displacement, lumbar region; M89.8X8 Other specified disorders of bone, other site; M41.86 Other forms of scoliosis, lumbar region; R26.2 Difficulty in walking, not elsewhere classified; G89.29 Other chronic pain; M43.06 Spondylolysis, lumbar region; M47.816 Spondylosis without myelopathy or radiculopathy, lumbar region; M48.061 Spinal stenosis, lumbar region without neurogenic claudication; F32.9 Major depressive disorder, single episode, unspecified; G47.00 Insomnia, unspecified; J44.9 Chronic obstructive pulmonary disease, unspecified; Z87.891 Personal history of nicotine dependence; E78.5 Hyperlipidemia, unspecified; F03.90 Unspecified dementia, unspecified severity, without behavioral disturbance, psychotic disturbance, mood disturbance, and anxiety; F41.9 Anxiety disorder, unspecified; I11.9 Hypertensive heart disease without heart failure; K21.9 Gastro-esophageal reflux disease without esophagitis; M47.26 Other spondylosis with radiculopathy, lumbar region; M51.16 Intervertebral disc disorders with radiculopathy, lumbar region; N32.81 Overactive bladder; Z79.899 Other long term (current) drug therapy; W18.30XD Fall on same level, unspecified, subsequent encounter; Z88.5 Allergy status to narcotic agent; B96.89 Other specified bacterial agents as the cause of diseases classified elsewhere
CPT/HCPCS: 36415; 85025; 87077; 87086; A4663; J0290; J2405; J7512; J8540; Q0162